=== PATIENT | female | born 1945 | race Caucasian/White ===

== ENCOUNTER 2017-10-17 17:07 | Inpatient (IN) | payer MEDICARE ==
[~2017-10-17] VITALS: Ht 157.5 cm; Wt 71.2 kg
[~2017-10-17 17:07] MED LIST: ALENDRONATE SOD70 MG PO; ARIMIDEX1 MG PO; ASCORBIC ACID500 MG PO; ATENOLOL50 MG PO; ATORVASTATIN CA20 MG PO; CEFUROXIME250 MG PO; CENTRUM SILVER1 EAC1 PO; COLACE100 MG; ECOTRIN81 MG; FAMOTIDINE20 MG PO; GABAPENTIN100 MG PO; HUMULIN R100 UNIT/1 SQ; LANTUS 3ML100 UNITS/ SQ; LANTUS100 UNITS/ SC; LISINOPRIL10 MG PO; LOVENOX40 MG/0.4 SC; Lactobacillus Acidophilus PO; MAGNESIUM OXID400 MG PO; MUPIROCIN22 GM TOP; NIFEDIPINE ER30 M1 PO; ONDANSETRON4 MG/2 M1 IV; PLAVIX75 MG PO; Z MORPHINE SULFAT; Z.0.ALENDRONATE SOD7 PO; Z.0.LANTUS100 UNIT/1 SQ; Z.0.LISINOPRIL40 MG PO; Z.0.METOPROLOL SUCC5 PO; Z.0.ONDANSETRON HCL4 PO; Z.0.SIMVASTATIN40 MG PO; vit d PO
--- OUTSIDE RECORDS SUMMARY | 2017-10-17 17:10 | XMS REPORT | Clinical Summary ---
Author Author [facility] Address Unknown Phone Unavailable Care Team Providers Care Sink Maker Name Role Phone PCP Unavailable Allergies Active Allergy Reactions Severity Noted Date Comments Ciprofloxacin Shortness Of Breath High 07/16/2014 Food Allergy Formula Anaphylaxis High 07/16/2014 Allergic to shrimp and strawberries Iodine Shortness Of Breath High 12/26/2016 Iodine And Iodide Shortness Of Breath High 07/16/2014 Containing Products Penicillins Anaphylaxis High 07/16/2014 Sulfamethoxazole-Trimetho Itching 07/22/2014 Generalized rash prim Codeine Itching 07/16/2014 Sulfa (Sulfonamide Itching 07/16/2014 Antibiotics) Nitrofurantoin Itching, Rash Low 12/26/2016 Monohyd/M-Cryst Current Medications Prescription Sig. Disp. Refills Start End Date Status Date alendronate (FOSAMAX) 70 Take 70 mg by mouth every Active MG tablet 7 days. Take in the morning with a full glass of water, on an empty stomach, and do not take anything else by mouth or lie down for the next 30 min. aspirin 81 MG EC tablet Take 81 mg by mouth Active daily. gabapentin (NEURONTIN) Take 100 mg by mouth 3 Active 100 MG capsule (three) times daily. multivitamin per tablet Take 1 tablet by mouth Active daily. albuterol HFA (VENTOLIN Inhale 2 puffs by mouth 12/09/19 Active HFA) 90 mcg/actuation via inhaler. 17 inhaler anastrozole (ARIMIDEX) 1 Take 1 mg by mouth. 08/09/20 Active mg tablet 16 atorvastatin (LIPITOR) 40 TAKE ONE (1) TABLET(S) BY 08/09/20 Active MG tablet MOUTH NIGHTLY.. 16 lisinopril TAKE ONE (1) TABLET(S) BY 08/09/20 Active (PRINIVIL,ZESTRIL) 40 MG MOUTH ONCE A DAY 16 tablet (REPLACING DIOVAN 320 MG).. insulin glargine (LANTUS) Inject 22 Units 10 mL 1 12/29/19 Active 100 unit/mL injection subcutaneously every 17 morning Use as directed. insulin regular (HUMULIN 6 units before each of 10 mL 1 12/29/19 Active R,NOVOLIN R) 100 unit/mL the 3 meals. Give her 17 injection relion, humulin, novolin or whatever is the cheapest R insulin. clopidogrel (PLAVIX) 75 Take 75 mg by mouth Active mg tablet daily. tamsulosin (FLOMAX) 0.4 Take 1 capsule (0.4 mg 30 capsule 0 04/25/20 Active mg Cp24 24 hr capsule total) by mouth daily. 17 docusate sodium (COLACE) Take 2 capsules (100 mg 30 capsule 0 Active 50 MG capsule total) by mouth 2 (two) 17 times daily. albuterol, refill, 90 Inhale by mouth via 12/27/19 Discontin mcg/actuation Aero inhaler every 6 (six) 17 ued hours as needed. atorvastatin (LIPITOR) 40 Take 40 mg by mouth 12/27/19 Discontin MG tablet daily. 17 ued docusate sodium (COLACE) Take by mouth daily. 04/25/20 Discontin 50 MG capsule 17 ued insulin glargine (LANTUS) Inject 60 Units 12/27/19 Discontin 100 unit/mL injection subcutaneously nightly. 17 ued Use as directed insulin NPH 100 unit/mL Inject 10 Units 12/29/19 Discontin (3 mL) InPn subcutaneously 3 (three) 17 ued times daily before meals. lisinopril Take 40 mg by mouth 12/27/19 Discontin (PRINIVIL,ZESTRIL) 40 MG daily. 17 ued tablet metFORMIN (GLUCOPHAGE) Take 1,000 mg by mouth 2 12/29/19 Discontin 500 MG tablet (two) times daily with 17 ued breakfast and dinner. metoprolol (TOPROL-XL) 50 Take 50 mg by mouth 12/29/19 Discontin MG 24 hr tablet daily. 17 ued DULoxetine (CYMBALTA) 30 Take 30 mg by mouth 12/27/19 Discontin MG capsule daily. 17 ued aspirin 81 MG EC tablet Take 81 mg by mouth. 12/27/19 Discontin 17 ued blood sugar diagnostic Check glucoses four times 09/14/19 12/27/19 Discontin (GLUCOSE BLOOD) Strp per day. Give her 17 17 ued whatever is on the insurance. pen needle, diabetic 31 For use with lantus 08/09/20 12/27/19 Discontin gauge x 1/4" Ndle nightly. 16 17 ued insulin regular (HUMULIN 6 units before each of 10/19/19 12/29/19 Discontin R,NOVOLIN R) 100 unit/mL the 3 meals. Give her 17 17 ued injection relion, humulin, novolin or whatever is the cheapest R insulin. insulin syringe-needle Four shots per day. 10/19/19 12/27/19 Discontin U-100 (BD INSULIN SYRINGE 17 17 ued ULTRA-FINE) 1/2 mL 30 gauge x 1/2" Syrg cholecalciferol, vitamin Take by mouth. 12/29/19 Discontin D3, 1,000 unit capsule 17 ued alendronate (FOSAMAX) 70 Take 70 mg by mouth. 08/09/20 12/27/19 Discontin MG tablet 16 17 ued DULoxetine (CYMBALTA) 30 Take 1 tablet daily for 1 08/09/20 12/29/19 Discontin MG capsule week, then take 2 tablets 16 17 ued daily. gabapentin (NEURONTIN) Take 100 mg by mouth. 08/09/20 12/27/19 Discontin 100 MG capsule 16 17 ued insulin NPH 18 units once daily at 10/19/19 12/29/19 Discontin (HUMULIN,NOVOLIN) 100 bedtime Give her relion, 17 17 ued unit/mL injection humulin, novolin or whatever is the cheapest NPH product. minocycline Take 1 capsule (100 mg 14 capsule 0 04/25/20 05/02/20 (MINOCIN,DYNACIN) 100 MG total) by mouth every 12 17 17 capsule (twelve) hours for 7 days. ferrous sulfate 325 (65 Take 1 tablet (325 mg 180 tablet 0 04/25/20 07/24/20 FE) MG EC tablet total) by mouth 2 (two) 17 17 times daily for 90 days. Active Problems Problem Noted Date Acute blood loss anemia 04/20/2017 Hematuria 04/20/2017 Non-intractable vomiting with nausea 04/19/2017 Urinary retention 04/18/2017 UTI (urinary tract infection) 04/18/2017 Secondary DM with DKA ([facility]) 12/29/2016 Hx of breast cancer 12/29/2016 Major depressive disorder 12/29/2016 Diabetic neuropathy ([facility]) 12/28/2016 Breast cancer ([facility]) 07/22/2014 Resolved Problems Problem Noted Date Resolved Date Diabetic ketoacidosis without coma associated with type 1 diabetes mellitus 12/26/2016 12/29/2016 ([facility]) Encounters Date Type Specialty Care Team Description 04/19/2017 Orders Only General Internal Medicine 04/18/2017 [facility] Urinary retention - Encounter Gurjit Palacio MD (Primary Dx);Acute 04/25/2017 Heath Stewart MD cystitis without hematuria 12/26/2016 Hospital [facility] Alexis Pickett MD Diabetic ketoacidosis - Encounter Mike García MD without coma associated 12/28/2016 Devon Villatoro, with type 1 diabetes MD mellitus ([facility]) Roselyn López MD 12/26/2016 Orders Only General Internal Medicine after 10/16/2016 Family History Medical History Relation Name Comments Malig Hyperthermia Paternal dude Uncle Relation Name Status Comments Paternal Uncle dude Social History Tobacco Use Types Packs/Day Years Used Date Former Smoker Smokeless Tobacco: Never Used Comments: quit many years ago Alcohol Use Drinks/Week oz/Week Comments No Sex Assigned at Date Recorded Not on file Last Filed Vital Signs Vital Sign Reading Time Taken Blood Pressure 145/67 04/25/2017 3:40 PM CDT Pulse 85 04/25/2017 3:40 PM CDT Temperature 36.8 C (98.2 F) 04/25/2017 3:40 PM CDT Respiratory Rate 19 04/25/2017 3:40 PM CDT Oxygen Saturation 97% 04/25/2017 3:40 PM CDT Inhaled Oxygen - - Concentration Weight 67.9 kg (149 lb 12.8 oz) 04/19/2017 1:14 AM CDT Height 157.5 cm (5' 2") 04/18/2017 2:46 PM CDT Body Mass Index 27.4 04/19/2017 1:14 AM CDT Plan of Treatment Not on file Procedures Procedure Name Priority Date/Time Associated Diagnosis Comments VA INSERT,TEMP INDWELLING Routine 04/19/2017 Results for this BLAD CATH,COMP 12:12 AM CDT procedure are in the results section. after 10/16/2016 Results * POC-Glucose meter (04/25/2017 4:43 PM) Only the most recent of 49 results within the time period is included. Component Value Ref Range POC-Glucose Meter 134 (H)Comment: TESTED AT [address] 70 - 110 mg /dL [place] [id number] Specimen Performing [place] [address] * Urinalysis w/Microscopic (04/24/2017 10:31 PM) Only the most recent of 3 results within the time period is included. Component Value Ref Range Color, UA Yellow Clarity, UA Hazy Specific Sparks, UA 1.008 1.001 - 1.035 pH, UA 6.0 5.0 - 8.0 Protein, UA 100 mg/dL (A) Negative Glucose, UA Negative Negative Ketones, UA Negative Negative Bilirubin, UA Negative Negative Blood, UA Moderate (A) Negative Nitrite, UA Negative Negative Leukocytes, UA Large (A) Negative Urobilinogen, UA 0.2 0.2 - 1.0 mg/dL RBC, UA 58 /HPF WBC, UA 234 /HPF Squam Epithel, UA <1 /HPF Specimen Source Urine, Voided Specimen Performing Laboratory Urine - Urine, [place] [address] * Occult blood, stool (04/24/2017 10:21 AM) Component Value Ref Range Occult blood Negative Negative Specimen Performing Laboratory Stool - Per Rectum [address] [address] * Urinalysis w/Microscopic + Reflex to Culture (04/24/2017 9:42 AM) Component Value Ref Range Color, UA Yellow Clarity, UA Hazy Specific Sparks, UA 1.008 1.001 - 1.035 pH, UA 6.5 5.0 - 8.0 Protein, UA 100 mg/dL (A) Negative Glucose, UA 50 mg/dL (A) Negative Ketones, UA Negative Negative Bilirubin, UA Negative Negative Blood, UA Moderate (A) Negative Nitrite, UA Negative Negative Leukocytes, UA Large (A) Negative Urobilinogen, UA 0.2 0.2 - 1.0 mg/dL RBC, UA 162 /HPF WBC, UA >182 /HPF Bacteria, UA Many Mucus Few Specimen Source Specimen Performing Laboratory Urine - Urine, [address] [address] * Urine culture (04/24/2017 9:42 AM) Only the most recent of 2 results within the time period is included. Component Value Ref Range Result No growth Specimen Performing Laboratory Urine - Urine, [address] [address] * Hemoglobin and hematocrit (04/24/2017 9:27 AM) Component Value Ref Range Hemoglobin 8.0 (L) 11.2 - 15.7 GM/DL Hematocrit 25.6 (L) 34.1 - 44.9 % Specimen Performing Laboratory Blood - Arm, [address] [address] * CBC with platelet count + automated diff (04/23/2017 8:43 AM) Only the most recent of 7 results within the time period is included. Component Value Ref Range WBC 12.3 (H) 3.5 - 10.5 K/ L RBC 3.05 (L) 3.93 - 5.22 M/ L Hemoglobin 7.7 (L) 11.2 - 15.7 GM/DL Hematocrit 25.1 (L) 34.1 - 44.9 % MCV 82.3 79.4 - 94.8 fL MCH 25.2 (L) 25.6 - 32.2 pg MCHC 30.7 (L) 32.2 - 35.5 GM/DL RDW 14.2 11.7 - 14.4 % Platelets 281 150 - 450 K/CU MM MPV 9.8 9.4 - 12.3 fL nRBC 0 0 - 0 /100 WBC % Neutros 73 % % Lymphs 18 % % Monos 7 % % Eos 2 % % Baso 0 % # Neutros 8.97 (H) 1.56 - 6.13 K/ L # Lymphs 2.22 1.18 - 3.74 K/ L # Monos 0.83 (H) 0.24 - 0.36 K/ L # Eos 0.22 0.04 - 0.36 K/ L # Baso 0.00 (L) 0.01 - 0.08 K/ L Immature 1 0 - 1 % Granulocytes-Relative Specimen Performing Laboratory Blood - Arm, [place] [address] * CBC with platelet count + automated diff (04/23/2017 8:43 AM) Only the most recent of 7 results within the time period is included. Specimen Performing Laboratory Blood Narrative The following orders were created for panel order CBC with platelet count + automated diff. Procedure Abnormality Status --------- - ------ CBC with platelet count ...[[id number]]AbnormalFinal result Please view results for these tests on the individual orders. * Basic Metabolic Panel (04/23/2017 8:43 AM) Only the most recent of 14 results within the time period is included. Component Value Ref Range Sodium 136 136 - 145 meq/L Potassium 4.4 3.5 - 5.1 meq/L Chloride 105 98 - 107 meq/L CO2 24 22 - 29 meq/L BUN 13 7 - 21 mg/dL Creatinine 1.13 0.57 - 1.25 mg/dL Glucose 238 (H) 70 - 105 mg/dL Calcium 7.2 (L) 8.4 - 10.2 mg/dL EGFR 48Comment: ESTIMATED GFR IS NOT ACCURATE mL/min/1.73 sq m CREATININE CLEARANCE IN PREDICTING GLOMERULAR FILTRATION RATE. ESTIMATED GFR IS NOT APPLICABLE FOR DIALYSIS PATIENTS. Specimen Performing Laboratory Blood - Arm, Right [address] [address] * Blood culture (04/22/2017 12:30 PM) Only the most recent of 4 results within the time period is included. Component Value Ref Range Result No growth in 5 days Specimen Performing Laboratory Blood - Arm, Left [address] [address] * CT abdomen/pelvis without iv contrast (04/21/2017 6:11 PM) Specimen Performing Laboratory GE RIS Narrative FINAL REPORT ABDOMINAL AND PELVIS CT DATED 04/21/2017 COMPARISON: September 02, 2009 CLINICAL INFORMATION:Hematuria TECHNIQUE:Axial images of the abdomen and pelvis were obtained from diaphragm to the pubic symphysis with GI contrast. Intravenous contrast was not given. This exam was performed according to our departmental dose-optimization program, which includes automated exposure control, adjustment of the mA and/or kV according to patient size and/or use of interactive reconstruction technique. COMMENT: There is trace bilateral pleural effusion with bibasilar subsegmental atelectasis. Liver and spleen are normal in size without focal abnormality. Gallbladder is minimally distended. Several small gallstones are present. No biliary dilatation is noted. Pancreas and adrenals are unremarkable. Both kidneys are normal in size. There is bilateral hydronephrosis and hydroureter. No urolithiasis is seen. Urinary bladder is contracted. There is marked wall thickening involving the urinary bladder secondary to nondistention, cystitis, or bladder neoplasm. Large amount fecal material is seen in the large body rectum suggestive of constipation. The small bowel is normal in caliber. Appendix is not visualized. No mass, adenopathy or ascites is present. IMPRESSION: 1. Interval development of bilateral hydronephrosis and hydroureter. 2. Interval development of marked wall thickening involving the urinary bladder secondary to nondistention, cystitis, or neoplasm. 3. Constipation. 4. Trace bilateral pleural effusion with bibasilar subsegmental atelectasis. Signed: Nima Jolley MD Report Verified Date/Time:04/21/2017 18:19:39 Reading Location: [facility] B1 [id number] CT Body Reading Room Procedure Note Interface, External Ris In - 04/21/2017 6:21 PM CDT FINAL REPORT ABDOMINAL AND PELVIS CT DATED 04/21/2017 COMPARISON: September 02, 2009 CLINICAL INFORMATION: Hematuria TECHNIQUE: Axial images of the abdomen and pelvis were obtained from diaphragm to the pubic symphysis with GI contrast. Intravenous contrast was not given. This exam was performed according to our departmental dose-optimization program, which includes automated exposure control, adjustment of the mA and/or kV according to patient size and/or use of interactive reconstruction technique. COMMENT: There is trace bilateral pleural effusion with bibasilar subsegmental atelectasis. Liver and spleen are normal in size without focal abnormality. Gallbladder is minimally distended. Several small gallstones are present. No biliary dilatation is noted. Pancreas and adrenals are unremarkable. Both kidneys are normal in size. There is bilateral hydronephrosis and hydroureter. No urolithiasis is seen. Urinary bladder is contracted. There is marked wall thickening involving the urinary bladder secondary to nondistention, cystitis, or bladder neoplasm. Large amount fecal material is seen in the large body rectum suggestive of constipation. The small bowel is normal in caliber. Appendix is not visualized. No mass, adenopathy or ascites is present. IMPRESSION: 1. Interval development of bilateral hydronephrosis and hydroureter. 2. Interval development of marked wall thickening involving the urinary bladder secondary to nondistention, cystitis, or neoplasm. 3. Constipation. 4. Trace bilateral pleural effusion with bibasilar subsegmental atelectasis. Signed: Nima Jolley MD Report Verified Date/Time: 04/21/2017 18:19:39 Reading Location: [address] Body Reading Room * Iron, TIBC, % sat. (without ferritin) (04/21/2017 6:38 AM) Component Value Ref Range Iron 11 (L) 40 - 160 ug/dL TIBC 120 (L) 250 - 450 ug/dL Iron % Saturation 9 (L) 20 - 55 % Specimen Performing Laboratory [place] [address] * CBC (Hemogram only) (04/21/2017 6:08 AM) Only the most recent of 2 results within the time period is included. Component Value Ref Range WBC 12.6 (H) 3.5 - 10.5 K/ L RBC 3.02 (L) 3.93 - 5.22 M/ L Hemoglobin 7.9 (L) 11.2 - 15.7 GM/DL Hematocrit 25.1 (L) 34.1 - 44.9 % MCV 83.1 79.4 - 94.8 fL MCH 26.2 25.6 - 32.2 pg MCHC 31.5 (L) 32.2 - 35.5 GM/DL RDW 14.3 11.7 - 14.4 % Platelets 316 150 - 450 K/CU MM MPV 9.4 9.4 - 12.3 fL nRBC 0 0 - 0 /100 WBC Specimen Performing Laboratory Blood [facility] [address] [place] [address] * US renal complete (04/20/2017 7:01 PM) Specimen Performing Laboratory GE RIS Narrative FINAL REPORT U/S, RENAL, COMPLETE CLINICAL INDICATION:hematuria COMPARISON: None TECHNIQUE:The kidneys and urinary bladder were evaluated using real time varghese scale and color Doppler sonography. FINDINGS: Right kidney: Size: 10.9 x 4.7 x 4.8 cm. Parenchyma: Normal echogenicity. No cysts. No stones. Hydronephrosis: None. Left kidney: Size: 10.8 x 5.6 x 6.6 cm. Parenchyma: Normal echogenicity. No cysts. No stones. Hydronephrosis: None. Renal Vasculature: Doppler interrogation reveals preserved vascular flow in the main renal arteries and veins bilaterally. Urinary bladder: Decompressed by Kang catheter. Additional findings: None. IMPRESSION: Unremarkable renal ultrasound. Signed: JR Bernstein Robert MD Report Verified Date/Time:04/20/2017 22:29:09 Reading Location: [address] Transitional Reading Room Procedure Note Interface, External Ris In - 04/20/2017 10:31 PM CDT FINAL REPORT U/S, RENAL, COMPLETE CLINICAL INDICATION: hematuria COMPARISON: None TECHNIQUE: The kidneys and urinary bladder were evaluated using real time varghese scale and color Doppler sonography. FINDINGS: Right kidney: Size: 10.9 x 4.7 x 4.8 cm. Parenchyma: Normal echogenicity. No cysts. No stones. Hydronephrosis: None. Left kidney: Size: 10.8 x 5.6 x 6.6 cm. Parenchyma: Normal echogenicity. No cysts. No stones. Hydronephrosis: None. Renal Vasculature: Doppler interrogation reveals preserved vascular flow in the main renal arteries and veins bilaterally. Urinary bladder: Decompressed by Kang catheter. Additional findings: None. IMPRESSION: Unremarkable renal ultrasound. Signed: JR Bernstein Robert MD Report Verified Date/Time: 04/20/2017 22:29:09 Reading Location: [facility] Transitional Reading Room * ECG 12 lead (04/19/2017 2:07 AM) Only the most recent of 2 results within the time period is included. Specimen Performing Laboratory GE MUSE Narrative Ventricular Rate 87 BPM Atrial Rate 87 BPM P-R Interval 162 ms QRS Duration 86 ms Q-T Interval 390 ms QTC Calculation(Bazett) 469 ms P Drewsey 76 degrees R Drewsey -12 degrees T Drewsey 14 degrees Normal sinus rhythm Nonspecific ST and T wave abnormality Prolonged QT Abnormal ECG When compared with ECG of 26-DEC-2016 14:29, Criteria for Anterior infarct are no longer Present T wave inversion no longer evident in Inferior leads T wave inversion no longer evident in Anterolateral leads QT has lengthened Confirmed by MD BEATTY YOCHAI ([id number]) on 04/19/2017 7:04:58 AM Procedure Note Interface, External Ris In - 04/19/2017 7:05 AM CDT Ventricular Rate 87 BPM Atrial Rate 87 BPM P-R Interval 162 ms QRS Duration 86 ms Q-T Interval 390 ms QTC Calculation(Bazett) 469 ms P Drewsey 76 degrees R Drewsey -12 degrees T Drewsey 14 degrees Normal sinus rhythm Nonspecific ST and T wave abnormality Prolonged QT Abnormal ECG When compared with ECG of 26-DEC-2016 14:29, Criteria for Anterior infarct are no longer Present T wave inversion no longer evident in Inferior leads T wave inversion no longer evident in Anterolateral leads QT has lengthened Confirmed by MD BEATTY YOCHAI ([id number]) on 04/19/2017 7:04:58 AM * BLADDER CATHETERIZATION (04/19/2017 12:12 AM) Narrative Deepak Guzman MD 04/19/2017 12:12 AM Bladder Cath Date/Time: 04/19/2017 12:09 AM Performed by: DEEPAK GUZMAN Authorized by: DEEPAK GUZMAN Consent: The procedure was performed in an emergent situation. Verbal consent obtained. Risks and benefits: risks, benefits and alternatives were discussed Consent given by: patient Patient understanding: patient states understanding of the procedure being performed Patient consent: the patient's understanding of the procedure matches consent given Procedure consent: procedure consent matches procedure scheduled Required items: required blood products, implants, devices, and special equipment available Patient identity confirmed: verbally with patient and arm band Time out: Immediately prior to procedure a "time out" was called to verify the correct patient, procedure, equipment, senior office support assistant sosa and site/side marked as required. Indications: urinary retention Preparation: Patient was prepped and draped in the usual sterile fashion. Catheter insertion: indwelling Catheter type: coude Catheter size: 16 Fr Complicated insertion: yes Altered anatomy: yes Altered anatomy details: edema Number of attempts: 2 Urine characteristics: clear Patient tolerance: Patient tolerated the procedure well with no immediate complications Immediate Post-Procedure Note Assistants to the procedure: None Pre-procedure diagnosis: retention Post-procedure diagnosis: rtention Procedures Performed: Bladder Cath Specimens removed: None Estimated blood loss (mL): None Complications: None Type of anesthesia: None Grafts or Implants: None * Lipase (04/18/2017 3:13 PM) Only the most recent of 2 results within the time period is included. Component Value Ref Range Lipase 7 (L) 8 - 78 U/L Specimen Performing Laboratory Blood - Line, Venous [address] [address] * Amylase (04/18/2017 3:13 PM) Only the most recent of 2 results within the time period is included. Component Value Ref Range Amylase 15 (L) 25 - 125 U/L Specimen Performing Laboratory Blood - Line, Venous [address] [address] * Hepatic function panel (04/18/2017 3:13 PM) Component Value Ref Range Protein, Total 7.3 6.0 - 8.3 gm/dL Albumin 3.3 (L) 3.5 - 5.0 g/dL Total Bilirubin 0.5 0.2 - 1.2 mg/dL Bilirubin, Direct 0.2 0.1 - 0.5 mg/dL Alkaline Phosphatase 116 40 - 150 U/L AST 10 5 - 34 U/L ALT 10 6 - 55 U/L Specimen Performing Laboratory Blood - Line, Venous [address] [address] * RHYTHM STRIP - SCAN (03/02/2017 11:10 AM) Only the most recent of 2 results within the time period is included. * Calcium, Ionized (12/27/2016 4:07 AM) Component Value Ref Range Calcium, Ion 1.12 1.12 - 1.27 mmol/L pH, Blood 7.37 Specimen Performing Laboratory Blood [address] [address] * Phosphorus (12/27/2016 4:07 AM) Component Value Ref Range Phosphorus 2.0 (L) 2.3 - 4.7 mg/dL Specimen Performing Laboratory Blood [address] [address] * Magnesium (12/27/2016 4:07 AM) Component Value Ref Range Magnesium 1.7 1.6 - 2.6 mg/dL Specimen Performing Laboratory Blood [address] [address] * Hemoglobin A1c (12/27/2016 4:07 AM) Component Value Ref Range Hemoglobin A1C 16.1 (H) 4.3 - 6.1 % Specimen Performing Laboratory Blood [address] [address] * Glucose, serum (12/26/2016 5:32 PM) Only the most recent of 2 results within the time period is included. Component Value Ref Range Glucose 374 (H) 70 - 105 mg/dL Specimen Performing Laboratory Blood - Arm, Left [address] [address] Narrative Effective 07/29/2014: Reference Range Change-Adult only New: 70-105 Previous: 70-110 If last glucose was less than 500, may do bedside glucose instead of serum glucose. * Potassium (12/26/2016 3:12 PM) Component Value Ref Range Potassium 3.6 3.6 - 5.5 meq/L Specimen Performing Laboratory Blood - Line, Venous [facility] [place] [address] [place] [address] * Rapid Troponin I (12/26/2016 3:11 PM) Component Value Ref Range Rapid Troponin I <0.05 <0.05 ng/mL Specimen Performing Laboratory Blood - Line, Venous [facility] [place] [address] [place] [address] * Rapid CK-MB (12/26/2016 3:11 PM) Component Value Ref Range Rapid CKMB 5.1 (H) 0.0 - 4.3 ng/mL Specimen Performing Laboratory Blood - Line, Venous [facility] [place] [address] * XR abdomen acute series flat/uprt with uprt pa chest and/or decubs (2016 2:23 PM) Specimen Performing Laboratory GE RIS Narrative FINAL REPORT Abdomen, 2 views, with upright chest. History: Generalized abdominal pain. Comparison:None available. Findings: The cardiomediastinal silhouette and lungs are normal. Surgical clips are present in the right breast. There is no free air. There are no dilated loops of bowel or air-fluid levels. Retained stool is present throughout the colon. There are no masses or abnormal calcifications. The osseous structures are intact. IMPRESSION: 1. No acute pulmonary abnormality. 2. Nonobstructive bowel gas pattern. Probable constipation. Signed: Braxton Waters MD Report Verified Date/Time:12/26/2016 14:29:10 Reading Location: [facility] [place] Reading Room Procedure Note Interface, External Ris In - 12/26/2016 2:31 PM CDT FINAL REPORT Abdomen, 2 views, with upright chest. History: Generalized abdominal pain. Comparison: None available. Findings: The cardiomediastinal silhouette and lungs are normal. Surgical clips are present in the right breast. There is no free air. There are no dilated loops of bowel or air-fluid levels. Retained stool is present throughout the colon. There are no masses or abnormal calcifications. The osseous structures are intact. IMPRESSION: 1. No acute pulmonary abnormality. 2. Nonobstructive bowel gas pattern. Probable constipation. Signed: Braxton Waters MD Report Verified Date/Time: 12/26/2016 14:29:10 Reading Location: [facility] [place] Reading Room * Ketones, blood (12/26/2016 1:50 PM) Component Value Ref Range Ketones, Blood 1.8 (H) <0.4 mmol/L Specimen Performing Laboratory Blood - Line, Venous [facility], [facility] [place], [facility] [address] [place] [address] * Comprehensive metabolic panel (12/26/2016 12:47 PM) Component Value Ref Range Protein, Total 7.0 6.0 - 8.5 gm/dL Albumin 3.9 3.5 - 5.0 g/dL Alkaline Phosphatase 93 30 - 115 U/L Total Bilirubin 0.9 0.1 - 1.2 mg/dL Sodium 137 135 - 148 meq/L Potassium 4.7 3.6 - 5.5 meq/L Chloride 95 (L) 98 - 106 meq/L CO2 26 24 - 32 meq/L BUN 17 10 - 26 mg/dL Creatinine 1.18 0.50 - 1.20 mg/dL Glucose 790 (HH)Comment: This is a corrected result. 70 - 110 mg/dL Previous result was 158 mg/dL on 12/26/2016 at 1326 CDT Calcium 9.4 8.5 - 10.5 mg/dL AST 14 5 - 40 U/L ALT 14 5 - 50 U/L EGFR 45Comment: ESTIMATED GFR IS NOT ACCURATE mL/min/1.73 sq m CREATININE CLEARANCE IN PREDICTING GLOMERULAR FILTRATION RATE. ESTIMATED GFR IS NOT APPLICABLE FOR DIALYSIS PATIENTS. Specimen Performing Laboratory Blood - Line, Venous [facility], [facility], [facility] [address] [place] [address] after 10/16/2016
--- OUTSIDE RECORDS SUMMARY | 2017-10-17 17:11 | XMS REPORT ---
Author Author [facility] Address Unknown Phone Unavailable Care Team Providers Care Director Index Name Role Phone MOHINI CARRILLO Unavailable Unavailable NATHANSTERLING STARLA Unavailable Unavailable DEEPAK GUZMAN Unavailable Unavailable JEFE, ZAY Unavailable Unavailable Problems This patient has no known problems. Allergies, Adverse Reactions, Alerts This patient has no known allergies or adverse reactions. Medications This patient has no known medications. Results Test Description Test Time Test Comments Text Results Atomic Results Result Comments BLOOD CULTURE 2017-04-27 16:46:00 CULTURE (BEAKER) (test kuri=2290) No growth in 5 days BLOOD [id number] 16:46:00* Test Item Value Reference Range Comments CULTURE (BEAKER) (test gooi=1734) No growth in 5 days POCT-GLUCOSE [id number] 16:54:00* Test Item Value Reference Range Comments POC-GLUCOSE METER (BEAKER) (test ajco=5387) 134 mg/dL 70-110 TESTED AT [place] [id number] [facility] [address] POCT-GLUCOSE [id number] 12:16:00* Test Item Value Reference Range Comments POC-GLUCOSE METER (BEAKER) (test cbtm=4184) 81 mg/dL 70-110 TESTED AT [place] [id number] [facility] [address] POCT-GLUCOSE [id number] 11:51:00* Test Item Value Reference Range Comments POC-GLUCOSE METER (BEAKER) (test ocpg=6642) 44 mg/dL 70-110 TESTED AT [address] [address] POCT-GLUCOSE [id number] 07:59:00* Test Item Value Reference Range Comments POC-GLUCOSE METER (BEAKER) (test uavq=9984) 187 mg/dL 70-110 TESTED AT [address] [address] URINALYSIS W/ [id number] 23:13:00* Test Item Value Reference Range Comments COLOR (BEAKER) (test fpje=502) Yellow CLARITY (BEAKER) (test ldpd=087) Hazy SPECIFIC GRAVITY UA (BEAKER) (test kani=361) 1.008 1.001-1.035 PH UA (BEAKER) (test cwmy=825) 6.0 5.0-8.0 PROTEIN UA (BEAKER) (test jbkw=179) 100 mg/dL Negative GLUCOSE UA (BEAKER) (test zxzw=248) Negative Negative KETONES UA (BEAKER) (test mtbn=649) Negative Negative BILIRUBIN UA (BEAKER) (test xbid=647) Negative Negative BLOOD UA (BEAKER) (test ozyo=872) Moderate Negative NITRITE UA (BEAKER) (test nssi=923) Negative Negative LEUKOCYTE ESTERASE UA (BEAKER) (test uylc=519) Large Negative UROBILINOGEN UA (BEAKER) (test irtm=357) 0.2 mg/dL 0.2-1.0 RBC UA (BEAKER) (test fdhw=663) 58 /HPF WBC UA (BEAKER) (test wtjy=458) 234 /HPF SQUAMOUS EPITHELIAL (BEAKER) (test jijn=055) < /HPF SOURCE(BEAKER) (test lqha=9925) Urine, Voided POCT-GLUCOSE [id number] 20:56:00* Test Item Value Reference Range Comments POC-GLUCOSE METER (BEAKER) (test ploc=4056) 134 mg/dL 70-110 TESTED AT [address] [address] POCT-GLUCOSE [id number] 17:36:00* Test Item Value Reference Range Comments POC-GLUCOSE METER (BEAKER) (test kdpb=4611) 147 mg/dL 70-110 TESTED AT [address] [address] POCT-GLUCOSE [id number] 12:01:00* Test Item Value Reference Range Comments POC-GLUCOSE METER (BEAKER) (test vshw=8618) 233 mg/dL 70-110 TESTED AT [address] [address] OCCULT BLOOD, [id number] 12:01:00* Test Item Value Reference Range Comments FECAL OCCULT BLOOD (BEAKER) (test neoj=375) Negative Negative URINALYSIS W/ REFLEX URINE [id number] 11:07:00* Test Item Value Reference Range Comments COLOR (BEAKER) (test poim=051) Yellow CLARITY (BEAKER) (test lfvp=188) Hazy SPECIFIC GRAVITY UA (BEAKER) (test xktg=779) 1.008 1.001-1.035 PH UA (BEAKER) (test ssgr=807) 6.5 5.0-8.0 PROTEIN UA (BEAKER) (test hbka=881) 100 mg/dL Negative GLUCOSE UA (BEAKER) (test gqrr=298) 50 mg/dL Negative KETONES UA (BEAKER) (test mdgc=694) Negative Negative BILIRUBIN UA (BEAKER) (test opef=760) Negative Negative BLOOD UA (BEAKER) (test mtyl=313) Moderate Negative NITRITE UA (BEAKER) (test ykyb=279) Negative Negative LEUKOCYTE ESTERASE UA (BEAKER) (test qfac=198) Large Negative UROBILINOGEN UA (BEAKER) (test sozv=526) 0.2 mg/dL 0.2-1.0 RBC UA (BEAKER) (test cbyf=897) 162 /HPF WBC UA (BEAKER) (test rupv=587) > /HPF BACTERIA (BEAKER) (test pfio=566) Many MUCUS (BEAKER) (test rtop=3679) Few SOURCE(BEAKER) (test alsp=0397) HEMOGLOBIN AND [id number] 09:41:00* Test Item Value Reference Range Comments HEMOGLOBIN (BEAKER) (test eegu=386) 8.0 GM/DL 11.2-15.7 HEMATOCRIT (BEAKER) (test ojxv=046) 25.6 % 34.1-44.9 POCT-GLUCOSE [id number] 07:17:00* Test Item Value Reference Range Comments POC-GLUCOSE METER (BEAKER) (test vvfx=7797) 241 mg/dL 70-110 TESTED AT [facility] [address] [facility] [address] BLOOD [id number] 06:00:00* Test Item Value Reference Range Comments CULTURE (BEAKER) (test whbz=0684) No growth in 5 days BLOOD [id number] 06:00:00* Test Item Value Reference Range Comments CULTURE (BEAKER) (test ltho=2046) No growth in 5 days POCT-GLUCOSE [id number] 21:27:00* Test Item Value Reference Range Comments POC-GLUCOSE METER (BEAKER) (test lujx=2912) 228 mg/dL 70-110 TESTED AT [address] [address] POCT-GLUCOSE [id number] 20:19:00* Test Item Value Reference Range Comments POC-GLUCOSE METER (BEAKER) (test gnqq=4684) 183 mg/dL 70-110 TESTED AT [address] [address] POCT-GLUCOSE [id number] 20:17:00* Test Item Value Reference Range Comments POC-GLUCOSE METER (BEAKER) (test soqx=2788) 165 mg/dL 70-110 TESTED AT [address] [address] POCT-GLUCOSE [id number] 20:08:00* Test Item Value Reference Range Comments POC-GLUCOSE METER (BEAKER) (test vkkm=7363) 237 mg/dL 70-110 TESTED AT [address] [address] POCT-GLUCOSE [id number] 20:00:00* Test Item Value Reference Range Comments POC-GLUCOSE METER (BEAKER) (test yheo=1910) 198 mg/dL 70-110 TESTED AT [address] [address] POCT-GLUCOSE [id number] 19:55:00* Test Item Value Reference Range Comments POC-GLUCOSE METER (BEAKER) (test frpl=4507) 238 mg/dL 70-110 TESTED AT [address] [address] BASIC METABOLIC [id number] 15:16:00* Test Item Value Reference Range Comments SODIUM (BEAKER) (test fyhb=717) 136 meq/L 136-145 POTASSIUM (BEAKER) (test rkgk=844) 4.4 meq/L 3.5-5.1 CHLORIDE (BEAKER) (test merg=400) 105 meq/L 98-107 CO2 (BEAKER) (test uqbe=768) 24 meq/L 22-29 BLOOD UREA NITROGEN (BEAKER) (test ziwt=622) 13 mg/dL 7-21 CREATININE (BEAKER) (test izdy=678) 1.13 mg/dL 0.57-1.25 GLUCOSE RANDOM (BEAKER) (test ahvx=632) 238 mg/dL 70-105 CALCIUM (BEAKER) (test mcxs=485) 7.2 mg/dL 8.4-10.2 EGFR (BEAKER) (test dbfl=1583) 48 mL/min/1.73 sq m ESTIMATED GFR IS NOT ACCURATE CREATININE CLEARANCE IN PREDICTING GLOMERULAR FILTRATION RATE. ESTIMATED GFR IS NOT APPLICABLE FOR DIALYSIS PATIENTS. CBC W/PLT COUNT & AUTO [id number] 10:14:00* Test Item Value Reference Range Comments WHITE BLOOD CELL COUNT (BEAKER) (test sauf=565) 12.3 K/ L 3.5-10.5 RED BLOOD CELL COUNT (BEAKER) (test wklv=027) 3.05 M/ L 3.93-5.22 HEMOGLOBIN (BEAKER) (test brmh=764) 7.7 GM/DL 11.2-15.7 HEMATOCRIT (BEAKER) (test vviu=297) 25.1 % 34.1-44.9 MEAN CORPUSCULAR VOLUME (BEAKER) (test htbp=516) 82.3 fL 79.4-94.8 MEAN CORPUSCULAR HEMOGLOBIN (BEAKER) (test xyit=247) 25.2 pg 25.6-32.2 MEAN CORPUSCULAR HEMOGLOBIN CONC (BEAKER) (test nqtz=069) 30.7 GM/DL 32.2- 35.5 RED CELL DISTRIBUTION WIDTH (BEAKER) (test bues=526) 14.2 % 11.7-14.4 PLATELET COUNT (BEAKER) (test hqzi=585) 281 K/CU MM 150-450 MEAN PLATELET VOLUME (BEAKER) (test lbgw=242) 9.8 fL 9.4-12.3 NUCLEATED RED BLOOD CELLS (BEAKER) (test aptj=913) 0 /100 WBC 0-0 NEUTROPHILS RELATIVE PERCENT (BEAKER) (test krbt=497) 73 % LYMPHOCYTES RELATIVE PERCENT (BEAKER) (test plae=321) 18 % MONOCYTES RELATIVE PERCENT (BEAKER) (test lhzy=873) 7 % EOSINOPHILS RELATIVE PERCENT (BEAKER) (test eeee=435) 2 % BASOPHILS RELATIVE PERCENT (BEAKER) (test vteq=262) 0 % NEUTROPHILS ABSOLUTE COUNT (BEAKER) (test ezpo=838) 8.97 K/ L 1.56-6.13 LYMPHOCYTES ABSOLUTE COUNT (BEAKER) (test pept=789) 2.22 K/ L 1.18-3.74 MONOCYTES ABSOLUTE COUNT (BEAKER) (test akaj=335) 0.83 K/ L 0.24-0.36 EOSINOPHILS ABSOLUTE COUNT (BEAKER) (test jjez=575) 0.22 K/ L 0.04-0.36 BASOPHILS ABSOLUTE COUNT (BEAKER) (test wynb=075) 0.00 K/ L 0.01-0.08 IMMATURE GRANULOCYTES-RELATIVE PERCENT (BEAKER) (test siod=0145) 1 % 0-1 BASIC METABOLIC [id number] 14:09:00* Test Item Value Reference Range Comments SODIUM (BEAKER) (test fgsm=906) 138 meq/L 136-145 POTASSIUM (BEAKER) (test hdyp=723) 3.7 meq/L 3.5-5.1 CHLORIDE (BEAKER) (test owbc=179) 105 meq/L 98-107 CO2 (BEAKER) (test xrmv=361) 22 meq/L 22-29 BLOOD UREA NITROGEN (BEAKER) (test exzf=119) 11 mg/dL 7-21 CREATININE (BEAKER) (test mvcm=078) 1.12 mg/dL 0.57-1.25 GLUCOSE RANDOM (BEAKER) (test trym=902) 203 mg/dL 70-105 CALCIUM (BEAKER) (test qkya=846) 7.2 mg/dL 8.4-10.2 EGFR (BEAKER) (test ekkb=4906) 48 mL/min/1.73 sq m ESTIMATED GFR IS NOT ACCURATE CREATININE CLEARANCE IN PREDICTING GLOMERULAR FILTRATION RATE. ESTIMATED GFR IS NOT APPLICABLE FOR DIALYSIS PATIENTS. CBC W/PLT COUNT & AUTO [id number] 13:18:00* Test Item Value Reference Range Comments WHITE BLOOD CELL COUNT (BEAKER) (test gjpt=052) 14.5 K/ L 3.5-10.5 RED BLOOD CELL COUNT (BEAKER) (test urcq=364) 3.16 M/ L 3.93-5.22 HEMOGLOBIN (BEAKER) (test fmqb=121) 8.1 GM/DL 11.2-15.7 HEMATOCRIT (BEAKER) (test sabr=369) 26.4 % 34.1-44.9 MEAN CORPUSCULAR VOLUME (BEAKER) (test ryea=847) 83.5 fL 79.4-94.8 MEAN CORPUSCULAR HEMOGLOBIN (BEAKER) (test xgsj=855) 25.6 pg 25.6-32.2 MEAN CORPUSCULAR HEMOGLOBIN CONC (BEAKER) (test olur=635) 30.7 GM/DL 32.2- 35.5 RED CELL DISTRIBUTION WIDTH (BEAKER) (test dxsw=316) 14.2 % 11.7-14.4 PLATELET COUNT (BEAKER) (test tayf=385) 326 K/CU MM 150-450 MEAN PLATELET VOLUME (BEAKER) (test dplq=282) 9.8 fL 9.4-12.3 NUCLEATED RED BLOOD CELLS (BEAKER) (test zoyz=361) 0 /100 WBC 0-0 NEUTROPHILS RELATIVE PERCENT (BEAKER) (test hkiu=282) 78 % LYMPHOCYTES RELATIVE PERCENT (BEAKER) (test dios=957) 14 % MONOCYTES RELATIVE PERCENT (BEAKER) (test hkax=113) 6 % EOSINOPHILS RELATIVE PERCENT (BEAKER) (test jzhb=778) 1 % BASOPHILS RELATIVE PERCENT (BEAKER) (test flcx=092) 0 % NEUTROPHILS ABSOLUTE COUNT (BEAKER) (test yebr=449) 11.35 K/ L 1.56-6.13 LYMPHOCYTES ABSOLUTE COUNT (BEAKER) (test nomp=101) 1.96 K/ L 1.18-3.74 MONOCYTES ABSOLUTE COUNT (BEAKER) (test artb=213) 0.90 K/ L 0.24-0.36 EOSINOPHILS ABSOLUTE COUNT (BEAKER) (test lpeg=185) 0.19 K/ L 0.04-0.36 BASOPHILS ABSOLUTE COUNT (BEAKER) (test imis=504) 0.04 K/ L 0.01-0.08 IMMATURE GRANULOCYTES-RELATIVE PERCENT (BEAKER) (test oeky=1587) 1 % 0-1 POCT-GLUCOSE [id number] 11:55:00* Test Item Value Reference Range Comments POC-GLUCOSE METER (BEAKER) (test riaz=4181) 254 mg/dL 70-110 TESTED AT [facility] [address] [facility] [address] POCT-GLUCOSE [id number] 08:14:00* Test Item Value Reference Range Comments POC-GLUCOSE METER (BEAKER) (test ibig=6492) 291 mg/dL 70-110 TESTED AT [facility] [address] [facility] [address] POCT-GLUCOSE [id number] 21:03:00* Test Item Value Reference Range Comments POC-GLUCOSE METER (BEAKER) (test pkje=6882) 193 mg/dL 70-110 TESTED AT [facility] [address] [facility] [address] POCT-GLUCOSE [id number] 17:32:00* Test Item Value Reference Range Comments POC-GLUCOSE METER (BEAKER) (test tipx=0948) 159 mg/dL 70-110 TESTED AT [place] [id number] [facility] [address] POCT-GLUCOSE [id number] 12:27:00* Test Item Value Reference Range Comments POC-GLUCOSE METER (BEAKER) (test kupv=7437) 237 mg/dL 70-110 TESTED AT [place] [id number] [facility] [address] POCT-GLUCOSE [id number] 09:25:00* Test Item Value Reference Range Comments POC-GLUCOSE METER (BEAKER) (test rcux=7046) 195 mg/dL 70-110 TESTED AT [facility] [address] [facility] [address] BASIC METABOLIC [id number] 09:25:00* Test Item Value Reference Range Comments SODIUM (BEAKER) (test evzt=041) 140 meq/L 136-145 POTASSIUM (BEAKER) (test zuow=492) 3.6 meq/L 3.5-5.1 CHLORIDE (BEAKER) (test zfya=941) 109 meq/L 98-107 CO2 (BEAKER) (test pkcs=142) 24 meq/L 22-29 BLOOD UREA NITROGEN (BEAKER) (test kbhy=847) 9 mg/dL 7-21 CREATININE (BEAKER) (test eaym=546) 1.05 mg/dL 0.57-1.25 GLUCOSE RANDOM (BEAKER) (test zpaa=816) 155 mg/dL 70-105 CALCIUM (BEAKER) (test sdmk=067) 7.0 mg/dL 8.4-10.2 EGFR (BEAKER) (test sdse=4564) 52 mL/min/1.73 sq m ESTIMATED GFR IS NOT ACCURATE CREATININE CLEARANCE IN PREDICTING GLOMERULAR FILTRATION RATE. ESTIMATED GFR IS NOT APPLICABLE FOR DIALYSIS PATIENTS. IRON, TIBC, % SAT. (WITHOUT FERRITIN)2017-04-21 07:45:00* Test Item Value Reference Range Comments IRON (BEAKER) (test kabt=103) 11 ug/dL 40-160 TOTAL IRON BINDING CAPACITY (BEAKER) (test hoom=819) 120 ug/dL 250-450 IRON % SATURATION (2) (BEAKER) (test ualz=6399) 9 % 20-55 CBC (HEMOGRAM ONLY)2017-04-21 06:13:00* Test Item Value Reference Range Comments WHITE BLOOD CELL COUNT (BEAKER) (test uowj=444) 12.6 K/ L 3.5-10.5 RED BLOOD CELL COUNT (BEAKER) (test piml=292) 3.02 M/ L 3.93-5.22 HEMOGLOBIN (BEAKER) (test uivd=834) 7.9 GM/DL 11.2-15.7 HEMATOCRIT (BEAKER) (test kejy=230) 25.1 % 34.1-44.9 MEAN CORPUSCULAR VOLUME (BEAKER) (test duiw=642) 83.1 fL 79.4-94.8 MEAN CORPUSCULAR HEMOGLOBIN (BEAKER) (test cyoe=121) 26.2 pg 25.6-32.2 MEAN CORPUSCULAR HEMOGLOBIN CONC (BEAKER) (test ampq=277) 31.5 GM/DL 32.2- 35.5 RED CELL DISTRIBUTION WIDTH (BEAKER) (test ftdw=752) 14.3 % 11.7-14.4 PLATELET COUNT (BEAKER) (test puwi=029) 316 K/CU MM 150-450 MEAN PLATELET VOLUME (BEAKER) (test stxq=364) 9.4 fL 9.4-12.3 NUCLEATED RED BLOOD CELLS (BEAKER) (test qazu=808) 0 /100 WBC 0-0 URINE [id number] 02:54:00* Test Item Value Reference Range Comments CULTURE (BEAKER) (test meen=4220) <10,000 col/mL Staphylococcus aureus POCT-GLUCOSE [id number] 21:07:00* Test Item Value Reference Range Comments POC-GLUCOSE METER (BEAKER) (test znpv=2183) 157 mg/dL 70-110 TESTED AT [address] [address] POCT-GLUCOSE [id number] 17:26:00* Test Item Value Reference Range Comments POC-GLUCOSE METER (BEAKER) (test jxmo=3529) 159 mg/dL 70-110 TESTED AT [address] [address] POCT-GLUCOSE [id number] 12:24:00* Test Item Value Reference Range Comments POC-GLUCOSE METER (BEAKER) (test alja=9728) 147 mg/dL 70-110 TESTED AT [facility] [address] [facility] [address] POCT-GLUCOSE [id number] 08:03:00* Test Item Value Reference Range Comments POC-GLUCOSE METER (BEAKER) (test vdiw=0738) 146 mg/dL 70-110 TESTED AT [facility] [address] [facility] [address] BASIC METABOLIC [id number] 05:49:00* Test Item Value Reference Range Comments SODIUM (BEAKER) (test eqpw=781) 143 meq/L 136-145 POTASSIUM (BEAKER) (test jmsx=633) 3.0 meq/L 3.5-5.1 CHLORIDE (BEAKER) (test uoqy=320) 108 meq/L 98-107 CO2 (BEAKER) (test rcqf=311) 27 meq/L 22-29 BLOOD UREA NITROGEN (BEAKER) (test bgar=604) 9 mg/dL 7-21 CREATININE (BEAKER) (test nher=317) 1.09 mg/dL 0.57-1.25 GLUCOSE RANDOM (BEAKER) (test kkkj=411) 120 mg/dL 70-105 CALCIUM (BEAKER) (test ktyz=619) 7.5 mg/dL 8.4-10.2 EGFR (BEAKER) (test pdsy=3556) 50 mL/min/1.73 sq m ESTIMATED GFR IS NOT ACCURATE CREATININE CLEARANCE IN PREDICTING GLOMERULAR FILTRATION RATE. ESTIMATED GFR IS NOT APPLICABLE FOR DIALYSIS PATIENTS. CBC (HEMOGRAM ONLY)2017-04-20 05:24:00* Test Item Value Reference Range Comments WHITE BLOOD CELL COUNT (BEAKER) (test rceg=387) 14.6 K/ L 3.5-10.5 RED BLOOD CELL COUNT (BEAKER) (test ebts=151) 3.14 M/ L 3.93-5.22 HEMOGLOBIN (BEAKER) (test agqc=743) 8.1 GM/DL 11.2-15.7 HEMATOCRIT (BEAKER) (test ogxv=009) 26.4 % 34.1-44.9 MEAN CORPUSCULAR VOLUME (BEAKER) (test rtjb=272) 84.1 fL 79.4-94.8 MEAN CORPUSCULAR HEMOGLOBIN (BEAKER) (test flos=029) 25.8 pg 25.6-32.2 MEAN CORPUSCULAR HEMOGLOBIN CONC (BEAKER) (test glqt=060) 30.7 GM/DL 32.2- 35.5 RED CELL DISTRIBUTION WIDTH (BEAKER) (test vuyu=762) 14.5 % 11.7-14.4 PLATELET COUNT (BEAKER) (test fnwt=284) 411 K/CU MM 150-450 MEAN PLATELET VOLUME (BEAKER) (test stuq=989) 9.8 fL 9.4-12.3 NUCLEATED RED BLOOD CELLS (BEAKER) (test bxez=304) 0 /100 WBC 0-0 POCT-GLUCOSE [id number] 21:17:00* Test Item Value Reference Range Comments POC-GLUCOSE METER (BEAKER) (test jgpt=7140) 162 mg/dL 70-110 TESTED AT [address] [address] POCT-GLUCOSE [id number] 17:25:00* Test Item Value Reference Range Comments POC-GLUCOSE METER (BEAKER) (test aopb=0288) 195 mg/dL 70-110 TESTED AT [address] [address] POCT-GLUCOSE [id number] 13:22:00* Test Item Value Reference Range Comments POC-GLUCOSE METER (BEAKER) (test egqq=5684) 260 mg/dL 70-110 TESTED AT [address] [address] POCT-GLUCOSE [id number] 08:57:00* Test Item Value Reference Range Comments POC-GLUCOSE METER (BEAKER) (test qyai=9397) 350 mg/dL 70-110 TESTED AT [address] [address] BASIC METABOLIC [id number] 04:45:00* Test Item Value Reference Range Comments SODIUM (BEAKER) (test mmjs=108) 144 meq/L 136-145 POTASSIUM (BEAKER) (test uvzp=294) 3.2 meq/L 3.5-5.1 CHLORIDE (BEAKER) (test mgzq=765) 106 meq/L 98-107 CO2 (BEAKER) (test oszg=403) 21 meq/L 22-29 BLOOD UREA NITROGEN (BEAKER) (test qvuo=748) 8 mg/dL 7-21 CREATININE (BEAKER) (test flmm=913) 1.04 mg/dL 0.57-1.25 GLUCOSE RANDOM (BEAKER) (test msxy=420) 306 mg/dL 70-105 CALCIUM (BEAKER) (test xeue=255) 8.6 mg/dL 8.4-10.2 EGFR (BEAKER) (test xuss=7376) 52 mL/min/1.73 sq m ESTIMATED GFR IS NOT ACCURATE CREATININE CLEARANCE IN PREDICTING GLOMERULAR FILTRATION RATE. ESTIMATED GFR IS NOT APPLICABLE FOR DIALYSIS PATIENTS. CBC W/PLT COUNT & AUTO [id number] 04:31:00* Test Item Value Reference Range Comments WHITE BLOOD CELL COUNT (BEAKER) (test ahjp=100) 12.6 K/ L 3.5-10.5 RED BLOOD CELL COUNT (BEAKER) (test mzha=843) 3.48 M/ L 3.93-5.22 HEMOGLOBIN (BEAKER) (test nfyz=213) 8.8 GM/DL 11.2-15.7 HEMATOCRIT (BEAKER) (test gdjj=957) 28.8 % 34.1-44.9 MEAN CORPUSCULAR VOLUME (BEAKER) (test hoji=666) 82.8 fL 79.4-94.8 MEAN CORPUSCULAR HEMOGLOBIN (BEAKER) (test liak=108) 25.3 pg 25.6-32.2 MEAN CORPUSCULAR HEMOGLOBIN CONC (BEAKER) (test biko=111) 30.6 GM/DL 32.2- 35.5 RED CELL DISTRIBUTION WIDTH (BEAKER) (test nblo=192) 14.3 % 11.7-14.4 PLATELET COUNT (BEAKER) (test cuma=390) 451 K/CU MM 150-450 MEAN PLATELET VOLUME (BEAKER) (test gnzp=939) 9.7 fL 9.4-12.3 NUCLEATED RED BLOOD CELLS (BEAKER) (test ghyy=956) 0 /100 WBC 0-0 NEUTROPHILS RELATIVE PERCENT (BEAKER) (test sdpz=572) 79 % LYMPHOCYTES RELATIVE PERCENT (BEAKER) (test uyip=772) 12 % MONOCYTES RELATIVE PERCENT (BEAKER) (test fqim=897) 7 % EOSINOPHILS RELATIVE PERCENT (BEAKER) (test zoms=181) 0 % BASOPHILS RELATIVE PERCENT (BEAKER) (test kwqy=017) 0 % NEUTROPHILS ABSOLUTE COUNT (BEAKER) (test xtcb=712) 9.96 K/ L 1.56-6.13 LYMPHOCYTES ABSOLUTE COUNT (BEAKER) (test njos=857) 1.56 K/ L 1.18-3.74 MONOCYTES ABSOLUTE COUNT (BEAKER) (test uaqi=090) 0.90 K/ L 0.24-0.36 EOSINOPHILS ABSOLUTE COUNT (BEAKER) (test aqzt=944) 0.04 K/ L 0.04-0.36 BASOPHILS ABSOLUTE COUNT (BEAKER) (test nvbr=701) 0.05 K/ L 0.01-0.08 IMMATURE GRANULOCYTES-RELATIVE PERCENT (BEAKER) (test shew=4793) 1 % 0-1 URINALYSIS W/ [id number] 00:37:00* Test Item Value Reference Range Comments COLOR (BEAKER) (test hrvd=148) Colorless CLARITY (BEAKER) (test mndy=368) Clear SPECIFIC GRAVITY UA (BEAKER) (test llqu=781) 1.003 1.001-1.035 PH UA (BEAKER) (test inxt=841) 6.0 5.0-8.0 PROTEIN UA (BEAKER) (test sgze=996) 20 mg/dL Negative GLUCOSE UA (BEAKER) (test pnua=181) 500 mg/dL Negative KETONES UA (BEAKER) (test idwi=776) 10 mg/dL Negative BILIRUBIN UA (BEAKER) (test ijvs=417) Negative Negative BLOOD UA (BEAKER) (test pztu=787) Negative Negative NITRITE UA (BEAKER) (test zrbd=895) Negative Negative LEUKOCYTE ESTERASE UA (BEAKER) (test vetd=660) Negative Negative UROBILINOGEN UA (BEAKER) (test misi=763) 0.2 mg/dL 0.2-1.0 RBC UA (BEAKER) (test vasn=561) 0 /HPF WBC UA (BEAKER) (test xxhz=763) 2 /HPF SOURCE(BEAKER) (test ouht=5891) Urine, Kang POCT-GLUCOSE [id number] 23:51:00* Test Item Value Reference Range Comments POC-GLUCOSE METER (BEAKER) (test bcus=7335) 345 mg/dL 70-110 TESTED AT [facility] [address] [facility] [address] CBC W/PLT COUNT & AUTO [id number] 16:04:00* Test Item Value Reference Range Comments WHITE BLOOD CELL COUNT (BEAKER) (test trww=759) 13.2 K/ L 3.5-10.5 RED BLOOD CELL COUNT (BEAKER) (test fclx=782) 3.86 M/ L 3.93-5.22 HEMOGLOBIN (BEAKER) (test tuex=993) 10.0 GM/DL 11.2-15.7 HEMATOCRIT (BEAKER) (test zfwr=417) 32.7 % 34.1-44.9 MEAN CORPUSCULAR VOLUME (BEAKER) (test qqyy=415) 84.7 fL 79.4-94.8 MEAN CORPUSCULAR HEMOGLOBIN (BEAKER) (test pxqv=063) 25.9 pg 25.6-32.2 MEAN CORPUSCULAR HEMOGLOBIN CONC (BEAKER) (test eujj=134) 30.6 GM/DL 32.2- 35.5 RED CELL DISTRIBUTION WIDTH (BEAKER) (test omrl=312) 14.0 % 11.7-14.4 PLATELET COUNT (BEAKER) (test ahgt=756) 470 K/CU MM 150-450 MEAN PLATELET VOLUME (BEAKER) (test xjbz=303) 10.0 fL 9.4-12.3 NUCLEATED RED BLOOD CELLS (BEAKER) (test ffou=258) 0 /100 WBC 0-0 NEUTROPHILS RELATIVE PERCENT (BEAKER) (test izeu=208) 76 % LYMPHOCYTES RELATIVE PERCENT (BEAKER) (test ywgy=605) 15 % MONOCYTES RELATIVE PERCENT (BEAKER) (test dleb=326) 8 % EOSINOPHILS RELATIVE PERCENT (BEAKER) (test gpie=912) 0 % BASOPHILS RELATIVE PERCENT (BEAKER) (test pjht=705) 0 % NEUTROPHILS ABSOLUTE COUNT (BEAKER) (test nhxr=418) 10.06 K/ L 1.56-6.13 LYMPHOCYTES ABSOLUTE COUNT (BEAKER) (test vpxy=871) 1.95 K/ L 1.18-3.74 MONOCYTES ABSOLUTE COUNT (BEAKER) (test iwel=177) 1.00 K/ L 0.24-0.36 EOSINOPHILS ABSOLUTE COUNT (BEAKER) (test cwge=968) 0.03 K/ L 0.04-0.36 BASOPHILS ABSOLUTE COUNT (BEAKER) (test vqut=400) 0.05 K/ L 0.01-0.08 IMMATURE GRANULOCYTES-RELATIVE PERCENT (BEAKER) (test snbv=7128) 1 % 0-1 [id number] 16:04:00* Test Item Value Reference Range Comments LIPASE (BEAKER) (test inkv=649) 7 U/L 8-78 [id number] 16:04:00* Test Item Value Reference Range Comments AMYLASE (BEAKER) (test sqaw=617) 15 U/L 25-125 BASIC METABOLIC [id number] 16:04:00* Test Item Value Reference Range Comments SODIUM (BEAKER) (test rejy=333) 141 meq/L 136-145 POTASSIUM (BEAKER) (test ghwo=265) 3.4 meq/L 3.5-5.1 CHLORIDE (BEAKER) (test tdrc=277) 105 meq/L 98-107 CO2 (BEAKER) (test xunx=660) 21 meq/L 22-29 BLOOD UREA NITROGEN (BEAKER) (test qprd=789) 9 mg/dL 7-21 CREATININE (BEAKER) (test hwwb=110) 1.15 mg/dL 0.57-1.25 GLUCOSE RANDOM (BEAKER) (test rlmu=813) 345 mg/dL 70-105 CALCIUM (BEAKER) (test clip=651) 9.2 mg/dL 8.4-10.2 EGFR (BEAKER) (test thvf=3253) 47 mL/min/1.73 sq m ESTIMATED GFR IS NOT ACCURATE CREATININE CLEARANCE IN PREDICTING GLOMERULAR FILTRATION RATE. ESTIMATED GFR IS NOT APPLICABLE FOR DIALYSIS PATIENTS. HEPATIC FUNCTION [id number] 16:04:00* Test Item Value Reference Range Comments TOTAL PROTEIN (BEAKER) (test pslw=227) 7.3 gm/dL 6.0-8.3 ALBUMIN (BEAKER) (test cylp=9379) 3.3 g/dL 3.5-5.0 BILIRUBIN TOTAL (BEAKER) (test mmlk=305) 0.5 mg/dL 0.2-1.2 BILIRUBIN DIRECT (BEAKER) (test yinf=015) 0.2 mg/dL 0.1-0.5 ALKALINE PHOSPHATASE (BEAKER) (test donm=243) 116 U/L 40-150 AST (SGOT) (BEAKER) (test egrv=563) 10 U/L 5-34 ALT (SGPT) (BEAKER) (test tbwn=082) 10 U/L 6-55 POCT-GLUCOSE [id number] 07:42:00* Test Item Value Reference Range Comments POC-GLUCOSE METER (BEAKER) (test jlgq=5396) 266 mg/dL 70-110 TESTED AT [facility] [address] [facility] [address] CBC W/PLT COUNT & AUTO [id number] 05:47:00* Test Item Value Reference Range Comments WHITE BLOOD CELL COUNT (BEAKER) (test sloi=061) 9.5 K/ L 4.0-10.0 RED BLOOD CELL COUNT (BEAKER) (test mirm=126) 4.72 M/ L 4.00-5.00 HEMOGLOBIN (BEAKER) (test wqzp=740) 12.7 GM/DL 12.0-15.0 HEMATOCRIT (BEAKER) (test ymjz=346) 40.1 % 36.0-45.0 MEAN CORPUSCULAR VOLUME (BEAKER) (test vhpm=341) 85.1 fL 82.0-99.0 MEAN CORPUSCULAR HEMOGLOBIN (BEAKER) (test vzeg=759) 27.0 pg 27.0-33.0 MEAN CORPUSCULAR HEMOGLOBIN CONC (BEAKER) (test vzor=076) 31.7 GM/DL 32.0- 36.0 RED CELL DISTRIBUTION WIDTH (BEAKER) (test shiu=499) 13.2 % 10.3-14.2 PLATELET COUNT (BEAKER) (test doyd=773) 176 K/CU MM 150-430 MEAN PLATELET VOLUME (BEAKER) (test itel=263) 8.0 fL 6.5-10.5 NUCLEATED RED BLOOD CELLS (BEAKER) (test thas=372) 0 /100 WBC 0-0 NEUTROPHILS RELATIVE PERCENT (BEAKER) (test gfmw=522) 57 % LYMPHOCYTES RELATIVE PERCENT (BEAKER) (test jewz=942) 33 % MONOCYTES RELATIVE PERCENT (BEAKER) (test ksuf=469) 8 % EOSINOPHILS RELATIVE PERCENT (BEAKER) (test vyso=575) 2 % BASOPHILS RELATIVE PERCENT (BEAKER) (test gxxj=923) 1 % NEUTROPHILS ABSOLUTE COUNT (BEAKER) (test xbxc=474) 5.43 K/ L 1.80-8.00 LYMPHOCYTES ABSOLUTE COUNT (BEAKER) (test nwsa=288) 3.10 K/ L 1.48-4.50 MONOCYTES ABSOLUTE COUNT (BEAKER) (test aioh=681) 0.73 K/ L 0.00-1.30 EOSINOPHILS ABSOLUTE COUNT (BEAKER) (test cxdq=960) 0.19 K/ L 0.00-0.50 BASOPHILS ABSOLUTE COUNT (BEAKER) (test ndki=409) 0.07 K/ L 0.00-0.20 0.00BASIC METABOLIC [id number] 05:46:00* Test Item Value Reference Range Comments SODIUM (BEAKER) (test qrin=479) 135 meq/L 136-145 POTASSIUM (BEAKER) (test bwex=003) 4.4 meq/L 3.5-5.1 CHLORIDE (BEAKER) (test invq=982) 107 meq/L 98-107 CO2 (BEAKER) (test efnd=887) 20 meq/L 22-29 BLOOD UREA NITROGEN (BEAKER) (test zeic=975) 15 mg/dL 7-21 CREATININE (BEAKER) (test bdic=190) 1.12 mg/dL 0.57-1.25 GLUCOSE RANDOM (BEAKER) (test tzvj=987) 206 mg/dL 70-105 CALCIUM (BEAKER) (test mmjq=289) 8.2 mg/dL 8.4-10.2 EGFR (BEAKER) (test aned=9822) 48 mL/min/1.73 sq m ESTIMATED GFR IS NOT ACCURATE CREATININE CLEARANCE IN PREDICTING GLOMERULAR FILTRATION RATE. ESTIMATED GFR IS NOT APPLICABLE FOR DIALYSIS PATIENTS. POCT-GLUCOSE [id number] 21:57:00* Test Item Value Reference Range Comments POC-GLUCOSE METER (BEAKER) (test ldgm=5409) 117 mg/dL 70-110 TESTED AT [facility] [address] [facility] [address] POCT-GLUCOSE [id number] 17:34:00* Test Item Value Reference Range Comments POC-GLUCOSE METER (BEAKER) (test ctir=1976) 81 mg/dL 70-110 TESTED AT [place] [id number] [facility] [address] BASIC METABOLIC [id number] 15:32:00* Test Item Value Reference Range Comments SODIUM (BEAKER) (test yfdh=730) 139 meq/L 136-145 POTASSIUM (BEAKER) (test iogo=194) 4.4 meq/L 3.5-5.1 CHLORIDE (BEAKER) (test rnvj=474) 111 meq/L 98-107 CO2 (BEAKER) (test zsha=600) 21 meq/L 22-29 BLOOD UREA NITROGEN (BEAKER) (test lmyt=620) 14 mg/dL 7-21 CREATININE (BEAKER) (test iwdf=665) 1.02 mg/dL 0.57-1.25 GLUCOSE RANDOM (BEAKER) (test aeyc=383) 153 mg/dL 70-105 CALCIUM (BEAKER) (test tqhz=952) 8.4 mg/dL 8.4-10.2 EGFR (BEAKER) (test uvlj=5038) 54 mL/min/1.73 sq m ESTIMATED GFR IS NOT ACCURATE CREATININE CLEARANCE IN PREDICTING GLOMERULAR FILTRATION RATE. ESTIMATED GFR IS NOT APPLICABLE FOR DIALYSIS PATIENTS. BASIC METABOLIC [id number] 14:30:00* Test Item Value Reference Range Comments SODIUM (BEAKER) (test mltw=802) 140 meq/L 136-145 POTASSIUM (BEAKER) (test zaam=040) 3.1 meq/L 3.5-5.1 Specimen slightly hemolyzed CHLORIDE (BEAKER) (test jwph=857) 121 meq/L 98-107 CO2 (BEAKER) (test iqsh=337) 13 meq/L 22-29 BLOOD UREA NITROGEN (BEAKER) (test gzdt=519) 11 mg/dL 7-21 CREATININE (BEAKER) (test pudr=889) 0.69 mg/dL 0.57-1.25 Specimen slightly hemolyzed GLUCOSE RANDOM (BEAKER) (test wgnq=190) 178 mg/dL 70-105 CALCIUM (BEAKER) (test autn=406) 5.8 mg/dL 8.4-10.2 EGFR (BEAKER) (test lzlh=6805) 84 mL/min/1.73 sq m ESTIMATED GFR IS NOT ACCURATE CREATININE CLEARANCE IN PREDICTING GLOMERULAR FILTRATION RATE. ESTIMATED GFR IS NOT APPLICABLE FOR DIALYSIS PATIENTS. POCT-GLUCOSE [id number] 11:55:00* Test Item Value Reference Range Comments POC-GLUCOSE METER (BEAKER) (test bbez=0690) 318 mg/dL 70-110 TESTED AT [facility] [address] [facility] [address] POCT-GLUCOSE [id number] 11:32:00* Test Item Value Reference Range Comments POC-GLUCOSE METER (BEAKER) (test xasf=7930) 244 mg/dL 70-110 TESTED AT [place] [id number] [facility] [address] BASIC METABOLIC [id number] 10:24:00* Test Item Value Reference Range Comments SODIUM (BEAKER) (test jsmg=542) 137 meq/L 136-145 POTASSIUM (BEAKER) (test isgr=425) 4.5 meq/L 3.5-5.1 Specimen slightly hemolyzed CHLORIDE (BEAKER) (test ltnk=720) 110 meq/L 98-107 CO2 (BEAKER) (test gweo=700) 19 meq/L 22-29 BLOOD UREA NITROGEN (BEAKER) (test htna=719) 12 mg/dL 7-21 CREATININE (BEAKER) (test rylb=372) 0.91 mg/dL 0.57-1.25 Specimen slightly hemolyzed GLUCOSE RANDOM (BEAKER) (test wbxz=987) 133 mg/dL 70-105 CALCIUM (BEAKER) (test gpyf=873) 8.1 mg/dL 8.4-10.2 EGFR (BEAKER) (test qfxm=6205) 61 mL/min/1.73 sq m ESTIMATED GFR IS NOT ACCURATE CREATININE CLEARANCE IN PREDICTING GLOMERULAR FILTRATION RATE. ESTIMATED GFR IS NOT APPLICABLE FOR DIALYSIS PATIENTS. HEMOGLOBIN [id number] 09:56:00* Test Item Value Reference Range Comments HEMOGLOBIN A1C (BEAKER) (test zbzg=099) 16.1 % 4.3-6.1 POCT-GLUCOSE [id number] 09:30:00* Test Item Value Reference Range Comments POC-GLUCOSE METER (BEAKER) (test gtay=9412) 149 mg/dL 70-110 TESTED AT [place] [id number] [facility] [address] POCT-GLUCOSE [id number] 08:32:00* Test Item Value Reference Range Comments POC-GLUCOSE METER (BEAKER) (test txrn=6671) 101 mg/dL 70-110 TESTED AT [address] [address] [id number] 07:27:00* Test Item Value Reference Range Comments MAGNESIUM (BEAKER) (test xhmk=813) 1.7 mg/dL 1.6-2.6 POCT-GLUCOSE [id number] 06:56:00* Test Item Value Reference Range Comments POC-GLUCOSE METER (BEAKER) (test jugl=8019) 190 mg/dL 70-110 TESTED AT [facility] [address] [facility] [address] POCT-GLUCOSE [id number] 06:01:00* Test Item Value Reference Range Comments POC-GLUCOSE METER (BEAKER) (test ennw=9885) 230 mg/dL 70-110 TESTED AT [place] [id number] [facility] [address] CALCIUM, [id number] 05:35:00* Test Item Value Reference Range Comments CALCIUM IONIZED (BEAKER) (test qbly=803) 1.12 mmol/L 1.12-1.27 PH, BLOOD (BEAKER) (test wkdp=6900) 7.37 [id number] 05:07:00* Test Item Value Reference Range Comments PHOSPHORUS (BEAKER) (test jgnl=361) 2.0 mg/dL 2.3-4.7 BASIC METABOLIC [id number] 05:07:00* Test Item Value Reference Range Comments SODIUM (BEAKER) (test qgxs=640) 137 meq/L 136-145 POTASSIUM (BEAKER) (test vzry=119) 4.0 meq/L 3.5-5.1 CHLORIDE (BEAKER) (test teyh=529) 111 meq/L 98-107 CO2 (BEAKER) (test ypxd=704) 17 meq/L 22-29 BLOOD UREA NITROGEN (BEAKER) (test yuwu=410) 13 mg/dL 7-21 CREATININE (BEAKER) (test jtih=600) 0.84 mg/dL 0.57-1.25 GLUCOSE RANDOM (BEAKER) (test tged=647) 239 mg/dL 70-105 CALCIUM (BEAKER) (test iqro=677) 8.0 mg/dL 8.4-10.2 EGFR (BEAKER) (test dsjb=2443) 67 mL/min/1.73 sq m ESTIMATED GFR IS NOT ACCURATE CREATININE CLEARANCE IN PREDICTING GLOMERULAR FILTRATION RATE. ESTIMATED GFR IS NOT APPLICABLE FOR DIALYSIS PATIENTS. POCT-GLUCOSE [id number] 05:06:00* Test Item Value Reference Range Comments POC-GLUCOSE METER (BEAKER) (test aasj=9787) 276 mg/dL 70-110 TESTED AT [place] [id number] [facility] [address] CBC W/PLT COUNT & AUTO [id number] 05:02:00* Test Item Value Reference Range Comments WHITE BLOOD CELL COUNT (BEAKER) (test txju=282) 10.1 K/ L 4.0-10.0 RED BLOOD CELL COUNT (BEAKER) (test ouxy=216) 4.60 M/ L 4.00-5.00 HEMOGLOBIN (BEAKER) (test ydkr=401) 12.7 GM/DL 12.0-15.0 HEMATOCRIT (BEAKER) (test smcd=311) 38.6 % 36.0-45.0 MEAN CORPUSCULAR VOLUME (BEAKER) (test nssl=345) 84.0 fL 82.0-99.0 MEAN CORPUSCULAR HEMOGLOBIN (BEAKER) (test zjnh=967) 27.6 pg 27.0-33.0 MEAN CORPUSCULAR HEMOGLOBIN CONC (BEAKER) (test oehd=431) 32.9 GM/DL 32.0- 36.0 RED CELL DISTRIBUTION WIDTH (BEAKER) (test ilun=787) 13.2 % 10.3-14.2 PLATELET COUNT (BEAKER) (test rmzm=609) 184 K/CU MM 150-430 MEAN PLATELET VOLUME (BEAKER) (test odhg=316) 8.4 fL 6.5-10.5 NUCLEATED RED BLOOD CELLS (BEAKER) (test ktbo=024) 0 /100 WBC 0-0 NEUTROPHILS RELATIVE PERCENT (BEAKER) (test cpwq=655) 62 % LYMPHOCYTES RELATIVE PERCENT (BEAKER) (test uifa=068) 30 % MONOCYTES RELATIVE PERCENT (BEAKER) (test wsbo=732) 6 % EOSINOPHILS RELATIVE PERCENT (BEAKER) (test musz=239) 1 % BASOPHILS RELATIVE PERCENT (BEAKER) (test zpgt=394) 1 % NEUTROPHILS ABSOLUTE COUNT (BEAKER) (test zfbt=744) 6.19 K/ L 1.80-8.00 LYMPHOCYTES ABSOLUTE COUNT (BEAKER) (test rlky=701) 3.02 K/ L 1.48-4.50 MONOCYTES ABSOLUTE COUNT (BEAKER) (test gjaf=807) 0.64 K/ L 0.00-1.30 EOSINOPHILS ABSOLUTE COUNT (BEAKER) (test rpjn=729) 0.12 K/ L 0.00-0.50 BASOPHILS ABSOLUTE COUNT (BEAKER) (test mkny=652) 0.07 K/ L 0.00-0.20 0.00POCT-GLUCOSE [id number] 04:10:00* Test Item Value Reference Range Comments POC-GLUCOSE METER (BEAKER) (test tlwm=4053) 234 mg/dL 70-110 TESTED AT [address] [address] POCT-GLUCOSE [id number] 03:06:00* Test Item Value Reference Range Comments POC-GLUCOSE METER (BEAKER) (test wckt=6227) 224 mg/dL 70-110 TESTED AT [address] [address] POCT-GLUCOSE [id number] 02:04:00* Test Item Value Reference Range Comments POC-GLUCOSE METER (BEAKER) (test qhuw=7764) 196 mg/dL 70-110 TESTED AT [address] [address] POCT-GLUCOSE [id number] 01:03:00* Test Item Value Reference Range Comments POC-GLUCOSE METER (BEAKER) (test lblf=7647) 167 mg/dL 70-110 TESTED AT [address] [address] POCT-GLUCOSE [id number] 00:12:00* Test Item Value Reference Range Comments POC-GLUCOSE METER (BEAKER) (test akci=1476) 183 mg/dL 70-110 TESTED AT [address] [address] BASIC METABOLIC [id number] 23:38:00* Test Item Value Reference Range Comments SODIUM (BEAKER) (test zzxj=400) 140 meq/L 136-145 POTASSIUM (BEAKER) (test qvpl=872) 4.0 meq/L 3.5-5.1 Specimen slightly hemolyzed CHLORIDE (BEAKER) (test casb=742) 112 meq/L 98-107 CO2 (BEAKER) (test frne=101) 20 meq/L 22-29 BLOOD UREA NITROGEN (BEAKER) (test hfko=502) 14 mg/dL 7-21 CREATININE (BEAKER) (test kunn=793) 0.86 mg/dL 0.57-1.25 Specimen slightly hemolyzed GLUCOSE RANDOM (BEAKER) (test vhxm=317) 200 mg/dL 70-105 CALCIUM (BEAKER) (test wfxq=599) 7.5 mg/dL 8.4-10.2 EGFR (BEAKER) (test fqcz=9184) 65 mL/min/1.73 sq m ESTIMATED GFR IS NOT ACCURATE CREATININE CLEARANCE IN PREDICTING GLOMERULAR FILTRATION RATE. ESTIMATED GFR IS NOT APPLICABLE FOR DIALYSIS PATIENTS. POCT-GLUCOSE [id number] 23:07:00* Test Item Value Reference Range Comments POC-GLUCOSE METER (BEAKER) (test vond=8478) 234 mg/dL 70-110 TESTED AT [place] [id number] [facility] [address] POCT-GLUCOSE [id number] 22:22:00* Test Item Value Reference Range Comments POC-GLUCOSE METER (BEAKER) (test lsrc=6487) 274 mg/dL 70-110 TESTED AT [address] [address] BASIC METABOLIC [id number] 21:42:00* Test Item Value Reference Range Comments SODIUM (BEAKER) (test wjei=261) 138 meq/L 136-145 POTASSIUM (BEAKER) (test byln=494) 4.1 meq/L 3.5-5.1 Specimen slightly hemolyzed CHLORIDE (BEAKER) (test izis=212) 110 meq/L 98-107 CO2 (BEAKER) (test daxv=769) 20 meq/L 22-29 BLOOD UREA NITROGEN (BEAKER) (test kqof=952) 15 mg/dL 7-21 CREATININE (BEAKER) (test kiik=531) 0.93 mg/dL 0.57-1.25 Specimen slightly hemolyzed GLUCOSE RANDOM (BEAKER) (test faum=585) 257 mg/dL 70-105 CALCIUM (BEAKER) (test mlzf=051) 7.9 mg/dL 8.4-10.2 EGFR (BEAKER) (test idgj=5268) 60 mL/min/1.73 sq m ESTIMATED GFR IS NOT ACCURATE CREATININE CLEARANCE IN PREDICTING GLOMERULAR FILTRATION RATE. ESTIMATED GFR IS NOT APPLICABLE FOR DIALYSIS PATIENTS. POCT-GLUCOSE [id number] 21:19:00* Test Item Value Reference Range Comments POC-GLUCOSE METER (BEAKER) (test kspk=5279) 228 mg/dL 70-110 TESTED AT [place] [id number] [facility] [address] POCT-GLUCOSE [id number] 20:11:00* Test Item Value Reference Range Comments POC-GLUCOSE METER (BEAKER) (test ljwa=6344) 262 mg/dL 70-110 TESTED AT [facility] [address] [facility] [address] POCT-GLUCOSE [id number] 19:16:00* Test Item Value Reference Range Comments POC-GLUCOSE METER (BEAKER) (test lqpy=4806) 303 mg/dL 70-110 Notified CHASITY EVANS/ TESTED AT [facility] [address] [facility] [address] [id number] 18:11:00* Test Item Value Reference Range Comments GLUCOSE RANDOM (BEAKER) (test gfhu=432) 374 mg/dL 70-105 Effective 07/29/2014: Reference Range Change-Adult onlyNew: 70-105 Previous : 70-110If last glucose was less than 500, may do bedside glucose instead of serum glucose.BASIC METABOLIC [id number] 18:11:00* Test Item Value Reference Range Comments SODIUM (BEAKER) (test nogk=746) 139 meq/L 136-145 POTASSIUM (BEAKER) (test yxor=789) 4.1 meq/L 3.5-5.1 CHLORIDE (BEAKER) (test wzmf=431) 105 meq/L 98-107 CO2 (BEAKER) (test tpje=874) 20 meq/L 22-29 BLOOD UREA NITROGEN (BEAKER) (test icux=731) 17 mg/dL 7-21 CREATININE (BEAKER) (test oqah=517) 1.29 mg/dL 0.57-1.25 GLUCOSE RANDOM (BEAKER) (test trhf=062) 374 mg/dL 70-105 CALCIUM (BEAKER) (test wzzo=981) 9.2 mg/dL 8.4-10.2 EGFR (BEAKER) (test jcrv=7381) 41 mL/min/1.73 sq m ESTIMATED GFR IS NOT ACCURATE CREATININE CLEARANCE IN PREDICTING GLOMERULAR FILTRATION RATE. ESTIMATED GFR IS NOT APPLICABLE FOR DIALYSIS PATIENTS. If last glucose was less than 500, may do bedside glucose instead of serum glucose.RAPID [id number] 15:36:00* Test Item Value Reference Range Comments RAPID CKMB (BEAKER) (test joje=7759) 5.1 ng/mL 0.0-4.3 RAPID TROPONIN [id number] 15:36:00* Test Item Value Reference Range Comments RAPID TROPONIN I (BEAKER) (test zfhf=2521) < ng/mL <0.05 [id number] 15:32:00* Test Item Value Reference Range Comments POTASSIUM (BEAKER) (test coct=075) 3.6 meq/L 3.6-5.5 [id number] 15:23:00* Test Item Value Reference Range Comments GLUCOSE RANDOM (BEAKER) (test oeni=709) 429 mg/dL 70-110 If last glucose was less than 500, may do bedside glucose instead of serum glucose.KETONE, [id number] 13:54:00* Test Item Value Reference Range Comments KETONES, BLOOD (BEAKER) (test bzug=4700) 1.8 mmol/L <0.4 COMPREHENSIVE METABOLIC [id number] 13:43:00* Test Item Value Reference Range Comments TOTAL PROTEIN (BEAKER) (test dbwd=377) 7.0 gm/dL 6.0-8.5 ALBUMIN (BEAKER) (test iukz=0463) 3.9 g/dL 3.5-5.0 ALKALINE PHOSPHATASE (BEAKER) (test egxl=581) 93 U/L 30-115 BILIRUBIN TOTAL (BEAKER) (test join=399) 0.9 mg/dL 0.1-1.2 SODIUM (BEAKER) (test fdbu=308) 137 meq/L 135-148 POTASSIUM (BEAKER) (test lkri=836) 4.7 meq/L 3.6-5.5 CHLORIDE (BEAKER) (test auui=934) 95 meq/L 98-106 CO2 (BEAKER) (test hciv=044) 26 meq/L 24-32 BLOOD UREA NITROGEN (BEAKER) (test lbla=299) 17 mg/dL 10-26 CREATININE (BEAKER) (test xghm=024) 1.18 mg/dL 0.50-1.20 GLUCOSE RANDOM (BEAKER) (test wmkf=050) 790 mg/dL 70-110 This is a corrected result. Previous result was 158 mg/dL on 12/26/2016 at 1326 CDT CALCIUM (BEAKER) (test koqg=439) 9.4 mg/dL 8.5-10.5 AST (SGOT) (BEAKER) (test yjkl=965) 14 U/L 5-40 ALT (SGPT) (BEAKER) (test qhyn=004) 14 U/L 5-50 EGFR (BEAKER) (test fcpy=1798) 45 mL/min/1.73 sq m ESTIMATED GFR IS NOT ACCURATE CREATININE CLEARANCE IN PREDICTING GLOMERULAR FILTRATION RATE. ESTIMATED GFR IS NOT APPLICABLE FOR DIALYSIS PATIENTS. URINALYSIS W/ [id number] 13:25:00* Test Item Value Reference Range Comments COLOR (BEAKER) (test kzhp=775) Light Yellow CLARITY (BEAKER) (test ouit=336) Clear SPECIFIC GRAVITY UA (BEAKER) (test zflr=246) 1.005 1.001-1.035 PH UA (BEAKER) (test jwhd=774) 5.5 5.0-8.0 PROTEIN UA (BEAKER) (test gubm=881) Negative Negative GLUCOSE UA (BEAKER) (test rmqb=032) >=1000 mg/dL Negative KETONES UA (BEAKER) (test fdlb=958) Negative Negative BILIRUBIN UA (BEAKER) (test tjgx=667) Negative Negative BLOOD UA (BEAKER) (test mrrf=979) Trace Negative NITRITE UA (BEAKER) (test hvmr=879) Negative Negative LEUKOCYTE ESTERASE UA (BEAKER) (test hyjl=362) Negative Negative UROBILINOGEN UA (BEAKER) (test whgu=179) 0.2 mg/dL 0.2-1.0 BACTERIA (BEAKER) (test qxva=129) Rare RBC UA-MANUAL (BEAKER) (test djze=6037) <5 /HPF WBC UA-MANUAL (BEAKER) (test fdqn=9272) <5 /HPF SQUAMOUS EPITHELIAL MANUAL (BEAKER) (test besx=5878) 5-10 /HPF SOURCE(BEAKER) (test fscb=5754) [id number] 13:08:00* Test Item Value Reference Range Comments AMYLASE (BEAKER) (test jpgv=223) 58 U/L 30-110 [id number] 13:08:00* Test Item Value Reference Range Comments LIPASE (BEAKER) (test uxhp=036) 90 U/L 40-240 CBC W/PLT COUNT & AUTO [id number] 12:55:00* Test Item Value Reference Range Comments WHITE BLOOD CELL COUNT (BEAKER) (test jlic=957) 10.8 10e3/ L 4.0-10.0 RED BLOOD CELL COUNT (BEAKER) (test wrsj=327) 5.66 10e6/ L 4.00-5.00 HEMOGLOBIN (BEAKER) (test fvkd=850) 15.2 g/dL 12.0-15.0 HEMATOCRIT (BEAKER) (test imfy=349) 45.7 % 36.0-45.0 MEAN CORPUSCULAR VOLUME (BEAKER) (test cmpw=350) 80.6 fL 82.0-99.0 MEAN CORPUSCULAR HEMOGLOBIN (BEAKER) (test mldq=369) 26.8 pg 27.0-33.0 MEAN CORPUSCULAR HEMOGLOBIN CONC (BEAKER) (test uorm=244) 33.3 g/dL 32.0- 36.0 RED CELL DISTRIBUTION WIDTH (BEAKER) (test dscn=768) 14.0 % 10.3-14.2 PLATELET COUNT (BEAKER) (test ziyz=732) 235 10e3/ L 150-430 MEAN PLATELET VOLUME (BEAKER) (test ylgw=158) 8.1 fL 6.5-10.5 NEUTROPHILS RELATIVE PERCENT (BEAKER) (test ntog=202) 71 % LYMPHOCYTES RELATIVE PERCENT (BEAKER) (test otlq=178) 20 % MONOCYTES RELATIVE PERCENT (BEAKER) (test wuve=342) 7 % EOSINOPHILS RELATIVE PERCENT (BEAKER) (test slml=463) 1 % BASOPHILS RELATIVE PERCENT (BEAKER) (test aguj=045) 1 % NEUTROPHILS ABSOLUTE COUNT (BEAKER) (test jjnx=386) 7.71 10e3/ L 1.80-8.00 LYMPHOCYTES ABSOLUTE COUNT (BEAKER) (test nyvr=317) 2.18 10e3/ L 1.48-4.50 MONOCYTES ABSOLUTE COUNT (BEAKER) (test qilk=256) 0.73 10e3/ L 0.00-1.30 EOSINOPHILS ABSOLUTE COUNT (BEAKER) (test xxsk=990) 0.12 10e3/ L 0.00-0.50 BASOPHILS ABSOLUTE COUNT (BEAKER) (test soys=746) 0.06 10e3/ L 0.00-0.20 CHEST SINGLE (PORTABLE) [facility] [address] [place], [place] [address] Patient Name: CHRIS RIVAS MR #: [id number] : 1945 Age/Sex: 72/F Req # : [id number] Adm Physician: Ordered by: MOHINI CARRILLO MD Report #: [id number] Location: ER Room/Bed: Procedure: [id number] DX/CHEST SINGLE (PORTABLE) Exam Date: Exam Time: REPORT STATUS: Signed PROCEDURE: A single AP view of the chest. COMPARISON: Portable chest 06/21/2017. INDICATIONS: HIGH BLOOD SUGAR FINDINGS: Lines/tubes: None. Lungs: The lungs are well inflated and clear. There is no evidence of pneumonia or pulmonary edema. Vertically oriented lucency overlying the lateral aspect of the right lung base likely represents a skinfold. Pleura: There is no pleural effusion or pneumothorax. Heart and mediastinum: The heart and the mediastinum are unremarkable. Bones: No acute bony abnormality. Degenerative changes of the thoracic spine. Surgical clips project over the right lung base. IMPRESSION: No acute radiographic abnormality. Dictated by: Nima Becerra M.D. on 07/19/2017 at 10:48 Electronically approved by: Nima Becerra M.D. on 07/19/2017 at 10:48 Dictated By: NIMA BECERRA MD 1048 Transcribed By: SHONA on 07/19/17 1048 COPY TO: MOHINI CARRILLO MD CHEST SINGLE (PORTABLE) [place] [address] Patient Name: CHRIS RIVAS MR #: [id number] : 1945 Age/Sex: 72/F Req # : [id number] Adm Physician: Ordered by: JIMY SERRANO [employer] Report #: [id number] Location: ER Room/Bed: Procedure: [id number] DX/CHEST SINGLE (PORTABLE) Exam Date: Exam Time: REPORT STATUS: Signed PROCEDURE: A single AP view of the chest. COMPARISON: Portable chest 05/04/2017. INDICATIONS: DIZZINESS, WEAKNESS FINDINGS: Lines/tubes: None. Lungs: The lungs are well inflated and clear. There is no evidence of pneumonia or pulmonary edema. Pleura: There is no pleural effusion or pneumothorax. Heart and mediastinum: The heart and the mediastinum are unremarkable. Bones: No acute bony abnormality. Degenerative changes of the thoracic spine. Soft tissues: Surgical clips project over the right breast. IMPRESSION: No acute radiographic abnormality. Dictated by: Nima Becerra M.D. on 06/21/2017 at 13:20 Electronically approved by: Nima Becerra M.D. on 06/21/2017 at 13:20 Dictated By: NIMA BECERRA MD 1320 Transcribed By: SHONA on 06/21/17 1320 COPY TO: JIMY SERRANO [employer] CHEST SINGLE (PORTABLE) [place] [address] Patient Name: CHRIS RIVAS MR #: [id number] : 1945 Age/Sex: 72/F Req #: [id number] Adm Physician: STARLA MASSEY MD Ordered by: JERRY BUSTAMANTE Report #: [id number] Location: [facility] Room/Bed: [place] [address] _ Procedure: [id number] DX/CHEST SINGLE (PORTABLE) Exam Date: 05/04/17 Exam Time: 1800 REPORT STATUS: Signed PROCEDURE: A single AP view of the chest. COMPARISON: Patients [facility], DX , CHEST SINGLE (PORTABLE), 04/10/2017, 16:01. INDICATIONS: VOMITING FINDINGS: Lines/tubes: None. Lungs: The lungs are well inflated and clear. There is no evidence of pneumonia or pulmonary edema. Pleura: There is no pleural effusion or pneumothorax. Heart and mediastinum: The heart and the mediastinum are unremarkable. Bones and soft tissues: No acute bony abnormality. Metallic clips project over the right lower hemithorax. IMPRESSION: 1. No acute cardiopulmonary abnormalities. Eladio Hernandez M.D. Dictated by: Eladio Hernandez M.D. on 05/04/2017 at 18:36 Electronically approved by: Eladio Hernandez M.D. on 05/04/2017 at 18:36 Dictated By: ELADIO HERNANDEZ MD 35 Transcribed By: SHONA on 05/04/171835 COPY TO: JERRY BUSTAMANTE
[2017-10-17] MEDS ORDERED: DIATRIZOATE MEGL/DIATRIZOA SOD 30 ML BTL PO ONE ×2 (19:12→19:22)
[2017-10-17 19:48] LABS: BASOPHILS # (AUTO) 0.1 (0.0-0.1); BASOPHILS % 0.6 % (0.0-1.0); EOSINOPHILS # (AUTO) 0.3 (0.0-0.4); EOSINOPHILS % 2.1 % (0.0-6.0); HEMATOCRIT 36.2 % (34.2-44.1); HEMOGLOBIN 12.1 g/dL (12.0-16.0); LYMPHOCYTES # (AUTO) 3.1 (1.0-3.2); LYMPHOCYTES % 25.2 % (18.0-39.1); MEAN CORPUSCULAR HEMOGLOBIN 27.5 pg (28-32); MEAN CORPUSCULAR HGB CONC 33.4 g/dL (31-35); MEAN CORPUSCULAR VOLUME 82.3 fL (81-99); MONOCYTES # (AUTO) 0.8 (0.2-0.8); MONOCYTES % 6.8 % (4.4-11.3); NEUTROPHILS % 64.7 % (38.7-80.0); PLATELET COUNT 333 x10e3/uL (140-360); RED CELL DISTRIBUTION WIDTH 13.7 % (11.7-14.4)
[2017-10-17 20:10] LABS: ALBUMIN 3.1 g/dL (3.5-5.0); ALBUMIN/GLOBULIN RATIO 0.7 (0.8-2.0); ANION GAP 17.1 mmol/L (8-16); CALCIUM 9.2 mg/dL (8.4-10.2); CREATININE, SERUM 1.65 mg/dL (0.57-1.11); MAGNESIUM 1.8 MG/DL (1.3-2.1); POTASSIUM 4.1 mmol/L (3.5-5.1)
[2017-10-17] MEDS ORDERED: ONDANSETRON HCL INJ 2 MG/ML VIAL IV STA (21:07)
[2017-10-17] MEDS ORDERED: INSULIN REGULAR, HUMAN 100 UNIT/1 ML 3ML VIAL SQ ONE (21:15)
[2017-10-17] MEDS ORDERED: SODIUM CHLORIDE 0.9% 1000ML 1,000 ML IV ONE (21:15)
[2017-10-17 21:17] LABS: BILIRUBIN,URINE NEGATIVE (NEGATIVE); CLARITY,URINE HAZY (CLEAR); COLOR,URINE YELLOW (YELLOW); KETONES,URINE NEGATIVE (NEGATIVE); LEUKOCYTE ESTERASE ,URINE 2+ (NEGATIVE); NITRITE,URINE NEGATIVE (NEGATIVE); PROTEIN,URINE DIPSTICK 1+ (NEGATIVE); URINE UROBILINOGEN 0.2 mg/dL (0.2 - 1)
[2017-10-17] MEDS ORDERED: INSULIN REGULAR, HUMAN 100 UNIT/1 ML 3ML VIAL ONE (21:20)
[2017-10-17] MEDS ORDERED: ONDANSETRON HCL INJ 2 MG/ML VIAL ONE (21:20)
[2017-10-17 21:29] LABS: AMORPHOUS SEDIMENT,URINE MODERATE (FEW); BACTERIA,URINE MANY /HPF; EPITHELIAL CELLS,URINE RARE /LPF; WBC,URINE (MAN) 21-50 /HPF (0-5)
[2017-10-17] MEDS ORDERED: CEFTRIAXONE SOD 1 GM VIAL IM ONE (21:45)
--- NOTE | 2017-10-17 22:47 | Diagnostic Imaging Report ---
EXAM: CT Abdomen and Pelvis WITHOUT contrast INDICATION: Abdominal pain, nausea, vomiting COMPARISON: None. TECHNIQUE: Abdomen and pelvis were scanned utilizing a multidetector helical scanner from the lung base to the pubic symphysis without administration of IV contrast. Absence of intravenous contrast decreases sensitivity for detection of focal lesions and vascular pathology. Coronal and sagittal reformations were obtained. Routine protocol was performed. IV CONTRAST: None. ORAL CONTRAST: Gastrografin RADIATION DOSE: Total DLP: 255.76 mGy*cm Estimated effective dose: (DLP x 0.015 x size factor) mSv COMPLICATIONS: None FINDINGS: LINES and TUBES: None. LOWER THORAX: Unremarkable HEPATOBILIARY: No focal hepatic lesions. No biliary ductal dilation. GALLBLADDER: There are stones in the gallbladder. No wall thickening. SPLEEN: No splenomegaly. PANCREAS: No focal masses or ductal dilatation. ADRENALS: No adrenal nodules KIDNEYS/URETERS: No hydronephrosis. No cystic or solid mass lesions. No stones. GI TRACT: Large amount of stool in the distal colon and rectum. There are diverticula within the sigmoid colon without evidence of diverticulitis. Appendix is not clearly identified. There is however no fat stranding or adenopathy in the right lower quadrant to suggest appendicitis. PELVIC ORGANS/BLADDER: Large amount of stool in the rectum. The urinary bladder is decompressed by a supra pubic Kang catheter. The uterus is absent. Bilateral ovaries are unremarkable. LYMPH NODES: No lymphadenopathy. VESSELS: There is mild atherosclerotic disease in the aorta and major arterial branches. PERITONEUM / RETROPERITONEUM: No free air or fluid. BONES: There are degenerative changes in the lumbar spine. Patient is status post repair of proximal right femoral fracture with intramedullary gwen and interlocking screw SOFT TISSUES: Unremarkable. IMPRESSION: 1. Moderate to severe constipation. 2. Cholelithiasis without evidence of acute cholecystitis. 3. Suprapubic catheter present decompressing the bladder. Signed by: Dr. Stanton Solano M.D. on 10/17/2017 10:43 PM
[2017-10-18] VITALS (9 sets, daily range): BP systolic 115–165; BP diastolic 69–95
--- NOTE | 2017-10-18 00:59 | Diagnostic Imaging Report ---
EXAMINATION: CHEST SINGLE (PORTABLE) INDICATION: Shortness of breath, elevated glucose COMPARISON: 07/19/2017 FINDINGS: TUBES and LINES: None. LUNGS: Lungs are not well inflated. Lungs are clear. There is no evidence of pneumonia or pulmonary edema. Surgical clips overlie the right lung base PLEURA: No pleural effusion or pneumothorax. HEART AND MEDIASTINUM: The cardiomediastinal silhouette is unremarkable. BONES AND SOFT TISSUES: No acute osseous lesion. Soft tissues are unremarkable. UPPER ABDOMEN: No free air under the diaphragm. IMPRESSION: No acute thoracic abnormality. Stable chest Signed by: Dr. Stanton Solano M.D. on 10/18/2017 12:55 AM
[2017-10-18] MEDS ORDERED: ONDANSETRON HCL INJ 2 MG/ML VIAL IV PRN ×2 (01:30)
[2017-10-18] MEDS ORDERED: CEFTRIAXONE SOD 1 GM VIAL IV SCH (01:30)
[2017-10-18] MEDS ORDERED: DEXTROSE 50% SYRINGE 50 ML IV PRN (01:30)
[2017-10-18] MEDS: SODIUM CHLORIDE 0.9% 1000ML 1,000 ML IV SCH ×2 (01:52→08:40)
--- OUTSIDE RECORDS SUMMARY | 2017-10-18 01:57 | XMS REPORT | Clinical Summary ---
Author Author LAURA [facility] [email or web address] [facility] Address Unknown Phone Unavailable Care Team Providers Care Interpreter And Translator Name Role Phone PCP Unavailable Allergies Active [...] 04/19/2017 Orders Only General Internal Medicine 04/18/2017 [facility]inary [facility] - Encounter Gurjit Palacio MD (Primary Dx);Acute 04/25/2017 Heath Stewart MD cystitis without hematuria 12/26/2016 Hospital Intensive [facility] Alexis Pickett MD Diabetic ketoacidosis - Encounter Mike García MD without coma associated 12/28/2016 Devon Villatoro, with type 1 diabetes MD mellitus ([facility]) Roselyn López MD 12/26/2016 Orders Only General Internal Medicine after 10/17/2016 Family History Medical History Relation Name Comments [...] Procedure Name Priority Date/Time Associated Diagnosis Comments [place] INSERT,TEMP INDWELLING Routine 04/19/2017 Results for this BLAD CATH,COMP 12:12 AM CDT procedure are in the results section. after 10/17/2016 Results * POC-Glucose meter (04/25/2017 4:43 PM) Only the most recent of 49 results within the time period is included. Component Value Ref Range POC-Glucose Meter 134 (H)Comment: TESTED AT [address] 70 - 110 mg /dL [place] [address] Specimen [place]forming [place] [id number] * Urinalysis w/Microscopic (04/24/2017 10:31 PM) Only the most recent of 3 results within the time period is included. Component Value Ref Range Color, UA Yellow Clarity, UA Hazy Specific [place], UA 1.008 1.001 - 1.035 pH, UA [...] Specimen Performing Laboratory Urine - Urine, [place] [address] * Occult blood, stool (04/24/2017 10:21 AM) Component Value Ref Range Occult blood Negative Negative Specimen Performing Laboratory Stool - Per Rectum [address] [address] * Urinalysis w/Microscopic + Reflex to Culture (04/24/2017 9:42 AM) Component Value Ref Range Color, UA Yellow Clarity, UA Hazy Specific [place], UA 1.008 1.001 - 1.035 pH, UA [...] Source Specimen Performing Laboratory Urine - Urine, [address] [address] * Urine culture (04/24/2017 9:42 AM) Only the most recent of 2 results within the time period is included. Component Value Ref Range Result No growth Specimen Performing Laboratory Urine - Urine, [address] [address] * Hemoglobin and hematocrit (04/24/2017 9:27 AM) Component Value Ref Range Hemoglobin 8.0 (L) 11.2 - 15.7 GM/DL Hematocrit 25.6 (L) 34.1 - 44.9 % Specimen Performing Laboratory Blood - Arm, [address] [address] * CBC with platelet count + automated [...] Specimen Performing Laboratory Blood - Arm, [place] [address] * CBC with platelet count + automated diff (04/23/2017 8:43 AM) Only the most recent of 7 results within the time period is included. Specimen Performing Laboratory Blood Narrative The following orders were created for panel order CBC with platelet count + automated diff. Procedure Abnormality Status --------- - ------ CBC with platelet count ...[[id number]]AbnormalFinal result Please view results for these tests [...] Specimen Performing Laboratory Blood - Arm, Right [address] [address] * Blood culture (04/22/2017 12:30 PM) Only the most recent of 4 results within the time period is included. Component Value Ref Range Result No growth in 5 days Specimen Performing Laboratory Blood - Arm, Left [address] [address] * CT abdomen/pelvis without iv contrast (04/21/2017 [...] MD Report Verified Date/Time:04/21/2017 18:19:39 Reading Location: [facility] B1 C013Y CT Body Reading Room Procedure [...] Report Verified Date/Time: 04/21/2017 18:19:39 Reading Location: [address] Body Reading Room * Iron, TIBC, % sat. (without ferritin) (04/21/2017 6:38 AM) Component Value Ref Range Iron 11 (L) 40 - 160 ug/dL TIBC 120 (L) 250 - 450 ug/dL Iron % Saturation 9 (L) 20 - 55 % Specimen Performing Laboratory [place] [address] * CBC (Hemogram only) (04/21/2017 6:08 AM) [...] /100 WBC Specimen Performing Laboratory Blood [facility] [address] [place] [address] * US renal complete (04/20/2017 7:01 PM) [...] MD Report Verified Date/Time:04/20/2017 22:29:09 Reading Location: [address] Transitional Reading Room Procedure Note Interface, [...] Report Verified Date/Time: 04/20/2017 22:29:09 Reading Location: [facility] Transitional Reading Room * ECG 12 lead (04/19/2017 2:07 AM) Only the most recent of 2 results within the time period is included. Specimen Performing Laboratory GE MUSE Narrative Ventricular Rate 87 BPM Atrial Rate 87 BPM P-R Interval 162 ms QRS Duration 86 ms Q-T Interval 390 ms QTC Calculation(Bazett) 469 ms P Marbury 76 degrees R Marbury -12 degrees T Marbury 14 degrees Normal sinus rhythm Nonspecific ST [...] 390 ms QTC Calculation(Bazett) 469 ms P Mar[place] 76 degrees R Marbury -12 degrees T [place] 14 degrees Normal sinus rhythm Nonspecific ST [...] to verify the correct patient, procedure, equipment, residential support worker and site/side marked as required. Indications: urinary [...] Specimen Performing Laboratory Blood - Line, Venous [address] [address] * Amylase (04/18/2017 3:13 PM) Only the most recent of 2 results within the time period is included. Component Value Ref Range Amylase 15 (L) 25 - 125 U/L Specimen Performing Laboratory Blood - Line, Venous [address] [address] * Hepatic function panel (04/18/2017 3:13 PM) [...] Specimen Performing Laboratory Blood - Line, Venous [address] [address] * RHYTHM STRIP - SCAN (03/02/2017 11:10 AM) Only the most recent of 2 results within the time period is included. * Calcium, Ionized (12/27/2016 4:07 AM) Component Value Ref Range Calcium, Ion 1.12 1.12 - 1.27 mmol/L pH, Blood 7.37 Specimen Performing Laboratory Blood [address] [address] * Phosphorus (12/27/2016 4:07 AM) Component Value Ref Range Phosphorus 2.0 (L) 2.3 - 4.7 mg/dL Specimen Performing Laboratory Blood [address] [address] * Magnesium (12/27/2016 4:07 AM) Component Value Ref Range Magnesium 1.7 1.6 - 2.6 mg/dL Specimen Performing Laboratory Blood [address] [address] * Hemoglobin A1c (12/27/2016 4:07 AM) Component Value Ref Range Hemoglobin A1C 16.1 (H) 4.3 - 6.1 % Specimen Performing Laboratory Blood [address] [address] * Glucose, serum (12/26/2016 5:32 PM) Only the most recent of 2 results within the time period is included. Component Value Ref Range Glucose 374 (H) 70 - 105 mg/dL Specimen Performing Laboratory Blood - Arm, Left [address] [address] Narrative Effective 07/29/2014: Reference Range Change-Adult only New: 70-105 Previous: 70-110 If last glucose was less than 500, may do bedside glucose instead of serum glucose. * Potassium (12/26/2016 3:12 PM) Component Value Ref Range Potassium 3.6 3.6 - 5.5 meq/L Specimen Performing Laboratory Blood - Line, Venous [facility], [facility] [place] [address] [place] [address] * Rapid Troponin I (12/26/2016 3:11 PM) Component Value Ref Range Rapid Troponin I <0.05 <0.05 ng/mL Specimen Performing Laboratory Blood - Line, Venous [facility], [facility] [place] [address] [place] [address] * Rapid CK-MB (12/26/2016 3:11 PM) Component Value Ref Range Rapid CKMB 5.1 (H) 0.0 - 4.3 ng/mL Specimen Performing Laboratory Blood - Line, Venous [facility] [place] [address] * XR abdomen acute series flat/uprt with [...] MD Report Verified Date/Time:12/26/2016 14:29:10 Reading Location: [facility] [employer] Reading Room Procedure Note Interface, External Ris [...] Report Verified Date/Time: 12/26/2016 14:29:10 Reading Location: [facility] [employer] Reading Room * Ketones, blood (12/26/2016 1:50 PM) Component Value Ref Range Ketones, Blood 1.8 (H) <0.4 mmol/L Specimen Performing Laboratory Blood - Line, Venous [facility], [facility] [place] [address] [place] [address] * Comprehensive metabolic panel (12/26/2016 12:47 PM) [...] Performing Laboratory Blood - Line, Venous [facility], [facility], [facility] [address] [place] [address] after 10/17/2016
[2017-10-18] MEDS ORDERED: HYDRALAZINE HCL 20 MG/ML VIAL IV STA (06:13)
[2017-10-18] MEDS: INSULIN REGULAR, HUMAN 100 UNIT/1 ML 3ML VIAL SQ SCH ×4 (07:28→22:11)
[2017-10-18] MEDS ORDERED: FAMOTIDINE 20 MG TAB PO SCH (07:30)
[2017-10-18] MEDS ORDERED: NIFEDIPINE CR 30 MG TAB PO SCH (09:00)
[2017-10-18] MEDS ORDERED: MAGNESIUM OXIDE 400 MG TAB PO SCH (09:00)
[2017-10-18] MEDS ORDERED: CLOPIDOGREL BISULFATE 75 MG TAB PO SCH (09:00)
[2017-10-18] MEDS ORDERED: ASCORBIC ACID 500 MG TAB PO SCH (09:00)
[2017-10-18] MEDS ORDERED: HYDRALAZINE HCL 20 MG/ML VIAL IV PRN (16:15)
[2017-10-18] MEDS ORDERED: CARVEDILOL 3.125 MG TAB PO SCH (17:00)
[2017-10-18] MEDS ORDERED: LACTULOSE SYRUP 20 GM/30 ML UDC PO ONE (17:00)
[2017-10-18] MEDS ORDERED: FLUCONAZOLE 100 MG TAB PO ONE (17:00)
[2017-10-18] MEDS ORDERED: VANCOMYCIN 1GM/NS 250 ML 250 ML IV ONE (17:00)
--- NOTE | 2017-10-18 17:13 | Diagnostic Imaging Report ---
History:Fall 2 weeks ago Comparison studies:09/19/2011 CT head Technique: Axial images were obtained from the skull base to the vertex. Coronal and sagittal images reconstructed from the axial data. Intravenous contrast: None Findings: Scalp/skull: No abnormalities. Extra-axial spaces: No masses. No fluid collections. Brain sulci: Mildly prominent. Ventricles: Mild compensatory dilatation. No hydrocephalus. Parenchyma: Multiple confluent and patchy hypodensities in the supratentorial white matter are small vessel ischemic changes. 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 Sellar/suprasellar region: No abnormalities. Craniocervical junction: Patent foramen magnum. No Chiari one malformation. Incidental findings: Fluid level in the right sphenoid sinus Atherosclerotic calcifications in the carotid siphons . Impression: No acute abnormalities. Chronic findings: 1. Mild generalized volume loss. 2. Severe supratentorial white matter small vessel ischemic changes. Signed by: Dr. Marily Marcelino M.D. on 10/18/2017 8:00 PM
[2017-10-18] MEDS: CARVEDILOL 3.125 MG TAB PO SCH (17:25)
[2017-10-18] MEDS ORDERED: INSULIN DETEMIR 100 UNIT/ML PEN SQ SCH (21:00)
[2017-10-18] MEDS: GABAPENTIN 100 MG CAP PO SCH (21:34)
[2017-10-18] MEDS: ATORVASTATIN 40 MG TAB PO SCH (21:35)
[2017-10-18] MEDS: CEFTRIAXONE SOD 1 GM VIAL IV SCH (21:35)
[2017-10-19] VITALS: BP 137/69
[2017-10-19 00:22] VITALS: BP 137/69
[2017-10-19 06:20] LABS: BASOPHILS # (AUTO) 0.1 (0.0-0.1); BASOPHILS % 0.5 % (0.0-1.0); EOSINOPHILS # (AUTO) 0.3 (0.0-0.4); EOSINOPHILS % 2.2 % (0.0-6.0); HEMATOCRIT 35.5 % (34.2-44.1); HEMOGLOBIN 11.5 g/dL (12.0-16.0); LYMPHOCYTES # (AUTO) 2.8 (1.0-3.2); LYMPHOCYTES % 24.2 % (18.0-39.1); MEAN CORPUSCULAR HEMOGLOBIN 27.4 pg (28-32); MEAN CORPUSCULAR HGB CONC 32.4 g/dL (31-35); MEAN CORPUSCULAR VOLUME 84.7 fL (81-99); MONOCYTES # (AUTO) 0.8 (0.2-0.8); MONOCYTES % 7.4 % (4.4-11.3); NEUTROPHILS # (AUTO) 7.3 (2.1-6.9); NEUTROPHILS % 64.4 % (38.7-80.0); PLATELET COUNT 293 x10e3/uL (140-360); RED BLOOD COUNT 4.19 x10e6/uL (3.6-5.1); RED CELL DISTRIBUTION WIDTH 13.9 % (11.7-14.4)
[2017-10-19 06:49] LABS: ALANINE AMINOTRANSFERASE 14 IU/L (0-55); ALBUMIN 2.6 g/dL (3.5-5.0); ALBUMIN/GLOBULIN RATIO 0.7 (0.8-2.0); ALKALINE PHOSPHATASE 72 IU/L (40-150); ANION GAP 12.9 mmol/L (8-16); BLOOD UREA NITROGEN 25 mg/dL (7-26); BUN/CREATININE RATIO 21 (6-25); CALCIUM 8.7 mg/dL (8.4-10.2); CARBON DIOXIDE 27 mmol/L (22-29); CHLORIDE 106 mmol/L (98-107); CREATININE, SERUM 1.18 mg/dL (0.57-1.11); EST GLOMERULAR FILTRATION RATE 45 ML/MIN (60-); GLUCOSE 320 mg/dL (74-118); POTASSIUM 4.9 mmol/L (3.5-5.1); SODIUM 141 mmol/L (136-145)
[2017-10-19 08:00] VITALS: BP 145/97
[2017-10-19] MEDS: ANASTROZOLE 1 MG TAB PO SCH (08:27)
[2017-10-19] MEDS: GABAPENTIN 100 MG CAP PO SCH ×3 (08:27→21:28)
[2017-10-19] MEDS: INSULIN REGULAR, HUMAN 100 UNIT/1 ML 3ML VIAL SQ SCH ×4 (08:27→21:28)
[2017-10-19] MEDS: CARVEDILOL 3.125 MG TAB PO SCH ×2 (08:27→17:18)
[2017-10-19 12:00] VITALS: BP 131/76
[2017-10-19] MEDS ORDERED: ASPIRIN 325 MG TAB PO SCH (13:00)
[2017-10-19] MEDS ORDERED: INSULIN DETEMIR 100 UNIT/ML PEN SQ NR (13:30)
[2017-10-19 16:00] VITALS: BP 157/89
[2017-10-19] MEDS: CLOPIDOGREL BISULFATE 75 MG TAB PO SCH (17:18)
[2017-10-19] MEDS: ASPIRIN 81 MG ENTERIC COATED PO SCH (17:18)
[2017-10-19 20:00] VITALS: BP 131/66
[2017-10-19] MEDS ORDERED: INSULIN DETEMIR 100 UNIT/ML PEN SQ SCH (21:00)
[2017-10-19] MEDS: CEFTRIAXONE SOD 1 GM VIAL IV SCH (21:28)
[2017-10-19] MEDS: HEPARIN SOD (PORCINE) 5,000 UNIT/ML VIAL SC SCH (21:28)
[2017-10-19] MEDS: ATORVASTATIN 40 MG TAB PO SCH (21:28)
[2017-10-20] VITALS (8 sets, daily range): BP systolic 94–162; BP diastolic 62–92
[2017-10-20] MEDS: ANASTROZOLE 1 MG TAB PO SCH (08:29)
[2017-10-20] MEDS: CLOPIDOGREL BISULFATE 75 MG TAB PO SCH (08:29)
[2017-10-20] MEDS: GABAPENTIN 100 MG CAP PO SCH ×3 (08:29→21:00)
[2017-10-20] MEDS: ASPIRIN 81 MG ENTERIC COATED PO SCH (08:29)
[2017-10-20] MEDS: CARVEDILOL 3.125 MG TAB PO SCH ×2 (08:29→16:21)
[2017-10-20] MEDS: HEPARIN SOD (PORCINE) 5,000 UNIT/ML VIAL SC SCH ×2 (08:35→21:00)
[2017-10-20] MEDS: INSULIN REGULAR, HUMAN 100 UNIT/1 ML 3ML VIAL SQ SCH ×4 (08:35→21:00)
[2017-10-20] MEDS ORDERED: MEROPENEM 500 MG VIAL ONE (14:10)
[2017-10-20] MEDS: MEROPENEM 500MG 500 MG in SODIUM CHLORIDE 0.9% 50ML 50 ML IV SCH ×2 (14:10→22:00)
[2017-10-20] MEDS ORDERED: CIPROFLOXACIN 250 MG TAB PO SCH (17:00)
[2017-10-20] MEDS ORDERED: INSULIN DETEMIR 100 UNIT/ML PEN SQ SCH (21:00)
[2017-10-20] MEDS: ATORVASTATIN 40 MG TAB PO SCH (21:00)
[2017-10-20] MEDS ORDERED: CEFTRIAXONE SOD 1 GM VIAL IV SCH (21:00)
[2017-10-20] MEDS: CEPHALEXIN 500 MG CAP PO SCH (21:00)
[2017-10-21] VITALS: BP 133/66
[2017-10-21] MEDS: ACETAMINOPHEN 325 MG TAB PO PRN ×2 (02:58→10:52)
[2017-10-21 04:00] VITALS: BP 142/68
[2017-10-21] MEDS: MEROPENEM 500MG 500 MG in SODIUM CHLORIDE 0.9% 50ML 50 ML IV SCH ×2 (05:51→15:19)
[2017-10-21] MEDS: INSULIN REGULAR, HUMAN 100 UNIT/1 ML 3ML VIAL SQ SCH ×4 (07:30→21:00)
[2017-10-21] MEDS: CEPHALEXIN 500 MG CAP PO SCH (08:02)
[2017-10-21] MEDS: ASPIRIN 81 MG ENTERIC COATED PO SCH (08:02)
[2017-10-21] MEDS: CARVEDILOL 3.125 MG TAB PO SCH (08:02)
[2017-10-21] MEDS: GABAPENTIN 100 MG CAP PO SCH ×3 (08:02→21:43)
[2017-10-21] MEDS: CLOPIDOGREL BISULFATE 75 MG TAB PO SCH (08:02)
[2017-10-21] MEDS: ANASTROZOLE 1 MG TAB PO SCH (08:02)
[2017-10-21] MEDS: HEPARIN SOD (PORCINE) 5,000 UNIT/ML VIAL SC SCH ×2 (08:03→21:00)
[2017-10-21 09:43] VITALS: BP 188/84
[2017-10-21 12:17] VITALS: BP 141/75
[2017-10-21] MEDS ORDERED: MEROPENEM 500 MG VIAL ONE (15:22)
[2017-10-21] MEDS: MEROPENEM 500 MG VIAL IV SCH ×2 (15:25→21:43)
[2017-10-21] MEDS: CARVEDILOL 12.5 MG TAB PO SCH (16:52)
[2017-10-21] MEDS ORDERED: HYDROCORTISONE ACETATE 25 MG/SUPP.RECT SUPP RC SCH (17:00)
[2017-10-21 17:43] VITALS: BP 175/79
[2017-10-21 20:00] VITALS: BP 141/71
[2017-10-21] MEDS: ATORVASTATIN 40 MG TAB PO SCH (21:43)
[2017-10-22] VITALS: BP 160/74
[2017-10-22 04:00] VITALS: BP 199/100
[2017-10-22] MEDS: MEROPENEM 500 MG VIAL IV SCH ×3 (06:14→22:13)
[2017-10-22 09:12] VITALS: BP 178/82
[2017-10-22] MEDS: ASPIRIN 81 MG ENTERIC COATED PO SCH (09:22)
[2017-10-22] MEDS: CARVEDILOL 12.5 MG TAB PO SCH ×2 (09:22→17:51)
[2017-10-22] MEDS: ANASTROZOLE 1 MG TAB PO SCH (09:22)
[2017-10-22] MEDS: GABAPENTIN 100 MG CAP PO SCH ×3 (09:23→20:48)
[2017-10-22] MEDS: CLOPIDOGREL BISULFATE 75 MG TAB PO SCH (09:23)
[2017-10-22] MEDS: HEPARIN SOD (PORCINE) 5,000 UNIT/ML VIAL SC SCH ×2 (09:42→21:00)
[2017-10-22] MEDS: INSULIN DETEMIR 100 UNIT/ML PEN SQ SCH (09:42)
[2017-10-22] MEDS: INSULIN REGULAR, HUMAN 100 UNIT/1 ML 3ML VIAL SQ SCH ×4 (09:42→21:00)
[2017-10-22 12:01] LABS: ANION GAP 10.2 mmol/L (8-16); CALCIUM 8.5 mg/dL (8.4-10.2); CREATININE, SERUM 1.09 mg/dL (0.57-1.11); POTASSIUM 4.2 mmol/L (3.5-5.1)
[2017-10-22 15:17] VITALS: BP 178/82
[2017-10-22 18:10] VITALS: BP 110/58
[2017-10-22 20:00] VITALS: BP 133/72
[2017-10-22] MEDS: ATORVASTATIN 40 MG TAB PO SCH (20:47)
[2017-10-22] MEDS ORDERED: NIFEDIPINE CR 30 MG TAB PO SCH (21:00)
[2017-10-23] VITALS: BP 115/56
[2017-10-23 04:00] VITALS: BP 122/67
[2017-10-23] MEDS: MEROPENEM 500 MG VIAL IV SCH ×2 (05:47→15:24)
[2017-10-23 08:00] VITALS: BP 131/66
[2017-10-23] MEDS: GABAPENTIN 100 MG CAP PO SCH ×2 (09:24→15:24)
[2017-10-23] MEDS: ASPIRIN 81 MG ENTERIC COATED PO SCH (09:24)
[2017-10-23] MEDS: ANASTROZOLE 1 MG TAB PO SCH (09:24)
[2017-10-23] MEDS: CLOPIDOGREL BISULFATE 75 MG TAB PO SCH (09:24)
[2017-10-23] MEDS: CARVEDILOL 12.5 MG TAB PO SCH (09:25)
[2017-10-23] MEDS: HEPARIN SOD (PORCINE) 5,000 UNIT/ML VIAL SC SCH (09:25)
[2017-10-23] MEDS: INSULIN DETEMIR 100 UNIT/ML PEN SQ SCH (09:26)
[2017-10-23] MEDS: INSULIN REGULAR, HUMAN 100 UNIT/1 ML 3ML VIAL SQ SCH ×3 (09:26→17:34)
--- NOTE | 2017-10-23 10:36 | Discharge Summary ---
PRIMARY CARE DOCTOR: Dr. Josh Finney FINAL DIAGNOSIS: Acute renal failure due to dehydration with orthostasis, resolved. SECONDARY DIAGNOSES 1. Extended spectrum beta lactamase klebsiella, pseudomonas, proteus urinary tract infection present on admission due to chronic suprapubic Kang catheter. 2. Uncontrolled hypertension, better. Will continue Coreg and nifedipine XL. 3. Deconditioning, resolved. 4. Diabetes, stable. 5. Coronary artery disease. Continue aspirin, Plavix, Coreg and Lipitor. 6. Breast cancer. Continue Arimidex. HISTORY: Per H and P. HOSPITAL COURSE: Patient was hydrated. Her acute renal failure resolved. Head CT was done, given the fact that she hit her head about 2 weeks ago while on Plavix. Head CT was unremarkable. Patient was restarted on aspirin and Plavix for her coronary artery disease. After a couple of days of physical therapy treatment, the patient now is deemed to be safe at home by herself with a walker. Her boyfriend, Rm, will also watch over her. The patient received heparin subcutaneous after her CT was back for DVT prophylaxis. As far as her ESBL UTI, the patient will be going home with home health to receive her IV Invanz 1 g daily times 4 days to complete her course. Subsequently, the home health nurse will discontinue the PICC line. The patient was seen and examined today. It took 35 minutes to discharge this patient today. I have also updated her PCP on her hospital course. CONDITION ON DISCHARGE: Stable. DISCHARGE MEDICATIONS: Please see medication reconciliation form. YIN ROBETR M.D. Job#: [id number] cc:JOSH FINNEY MD
[2017-10-23 12:00] VITALS: BP 86/53
[2017-10-23 16:00] VITALS: BP 99/57
[2017-10-23] MEDS ORDERED: CARVEDILOL 12.5 MG TAB PO SCH (17:00)
--- NOTE | 2017-10-23 17:33 | Diagnostic Imaging Report ---
PROCEDURE: CHEST XRAY LINE PLACEMENT 1641 hrs. COMPARISON: Chest x-ray 10/17/17. INDICATIONS: PICC PLACEMENT FINDINGS: Lines/tubes: Right PICC line terminates in the SVC. No pneumothorax. LUNGS: No mass or infiltrate. Pulmonary vascular markings are normal. PLEURA: No effusions or pneumothorax. HEART \T\ MEDIASTINUM: Cardiomediastinal silhouette is normal. BONES \T\ SOFT TISSUES: Surgical clips in the lower right chest are stable. No focal osseous lesions. CONCLUSION: Right PICC line as described above. No pneumothorax. No new cardiopulmonary process. Dictated by: Jaxon Acuña M.D. on 10/23/2017 at 17:43 Electronically approved by: Jaxon Acuña M.D. on 10/23/2017 at 17:43
[2017-10-24] MEDS ORDERED: INSULIN DETEMIR 100 UNIT/ML PEN SQ SCH (07:30)
== END 2017-10-23 20:38 | disposition home health service (06) | DRG 699 ==
LOC: ER 17:07 → ERHOLD 10-18 01:47 → MED/SURG2 10-18 15:28
PROVIDERS: ADMIT Internal Medicine; ATTEND Internal Medicine
PROC: 02HV33Z Insertion of Infusion Device into Superior Vena Cava, Percutaneous Approach (ICD-10-PCS; principal; 2017-10-23)
DX: T83.518A Infection and inflammatory reaction due to other urinary catheter, initial encounter (principal); N17.9 Acute kidney failure, unspecified; E11.65 Type 2 diabetes mellitus with hyperglycemia; C80.1 Malignant (primary) neoplasm, unspecified; E86.0 Dehydration; I25.10 Atherosclerotic heart disease of native coronary artery without angina pectoris; B96.20 Unspecified Escherichia coli [E. coli] as the cause of diseases classified elsewhere; Z16.12 Extended spectrum beta lactamase (ESBL) resistance
CPT/HCPCS: 36415; 36569; 36584; 70450; 71045; 74176; 80048; 80053; 81001; 82150; 82550; 82553; 82948; 83605; 83690; 83735; 83880; 84484; 85025; 87086; 87186; 93005; 96372; 99285; J0360; J0696; J1644; J2185; J2405; J3370; J7030